=== PATIENT | male | born 1955 | race Caucasian/White ===

== ENCOUNTER 2019-01-20 14:09 | Observation (INO) | payer MEDICARE ==
[2019-01-20 17:03] VITALS: BMI 36.4
[2019-01-20] MEDS ORDERED: Acetaminophen 325 MG TAB PO PRN (17:30)
[2019-01-20] MEDS ORDERED: Senokot S 8.6-50 MG TAB PO PRN (20:25)
[2019-01-20] MEDS ORDERED: Dextrose 50% Abboject 50 ML SYRINGE SLOW IVP PRN (20:31)
[2019-01-20] MEDS ORDERED: Dextrose 5% in Water 1,000 ML IV PRN (20:31)
[2019-01-20] MEDS ORDERED: Atorvastatin Calcium 40 MG TAB PO SCH (21:00)
[2019-01-20] MEDS: Famotidine 20 MG TAB PO SCH (21:00)
[2019-01-20] MEDS: HumaLOG 300 UNITS/3 ML VIAL SC PRN (22:11)
[2019-01-20 23:54] LABS: Troponin I 0.017 ng/mL (< 0.028)
[2019-01-21] MEDS: HumaLOG 300 UNITS/3 ML VIAL SC PRN ×4 (06:45→21:11)
[2019-01-21 06:56] LABS: #Basophils 0.1 thou/uL (0.0-0.2); #Eosinphils 0.4 thou/uL (0.0-0.7); #Lymphocytes 2.2 thou/uL (1.20-3.40); #Monocytes 0.6 thou/uL (0.11-0.59); #Neutrophils 3.7 thou/uL (1.40-6.50); %Basophils 1.8 % (0.0-1.0); %Eosinophils 6.3 % (0.0-10.0); %Lymphocytes 31.1 % (21.0-51.0); %Monocytes 8.6 % (0.0-10.0); %Neutrophils 52.3 % (42.0-75.0); Hemoglobin 16.6 g/dL (14.0-18.0); Mean Corpuscular HGB CONC 32.7 g/dL (32.0-36.0); Mean Corpuscular Hemoglobin 29.8 pg (27.0-31.0); Mean Corpuscular Volume 91.1 fL (78.0-98.0); Mean Platelet Volume 11.7 fL (7.4-10.4); Platelet Count 125 thou/uL (130-400); RBC Distribution Width 12.5 % (11.5-14.5); Red Blood Cell (RBC) Count 5.57 mill/uL (4.70-6.10); White Blood Cell (WBC) Count 7.1 thou/uL (4.8-10.8)
[2019-01-21 07:05] LABS: Hemoglobin A1c 14.8 % (4.0-6.0)
[2019-01-21 07:22] LABS: ALT (SGPT) 39 U/L (8-55); AST (SGOT) 33 U/L (5-34); Albumin 3.4 g/dL (3.4-4.8); Alkaline Phosphatase 94 U/L (40-150); Anion Gap 14 mmol/L (10-20); BUN (Urea Nitrogen) 13 mg/dL (8.4-25.7); Bilirubin, Total 0.4 mg/dL (0.2-1.2); Calc. Creatinine Clearance 165 mL/min (70-130); Calcium 9.2 mg/dL (7.8-10.44); Carbon Dioxide 21 mmol/L (23-31); Cardiac Risk 3.8 (Less than 4.5); Chloride 102 mmol/L (98-107); Cholesterol 192 mg/dl (< 200 Desired); Estimated GFR-MDRD Greater than 90; Globulin 3.2 g/dL (2.4-3.5); Glucose 283 mg/dL (80-115); HDL Cholesterol 50 mg/dL (>60 Neg Risk); LDL Cholesterol, Calculated 121 mg/dL; Potassium 4.1 mmol/L (3.5-5.1); Protein, Total 6.6 g/dL (5.8-8.1); Sodium 133 mmol/L (136-145); Triglycerides 104 mg/dL (Less than 150)
[2019-01-21] MEDS ORDERED: ISOVUE-370 76%-LOCM 1 ML ONE (08:55)
[2019-01-21] MEDS ORDERED: Enoxaparin Sodium 40 MG/0.4 ML SYRINGE SC SCH (09:00)
[2019-01-21] MEDS ORDERED: Non-Formulary Item 1 EACH (Insulin Detemir [Levemir] 25 UNIT) SQ SCH (09:00)
[2019-01-21] MEDS: Aspirin 325 mg Enteric Coated Tablet PO SCH (09:15)
[2019-01-21] MEDS: Famotidine 20 MG TAB PO SCH ×2 (09:15→20:10)
[2019-01-21] MEDS: Lisinopril 2.5 MG TAB PO SCH (09:15)
[2019-01-21] MEDS: Insulin Glargine 25 UNITS in Pre-Filled Syringe 1 EACH SC SCH (09:16)
--- NOTE | 2019-01-21 10:48 | MRI ---
MRI BRAIN NONCONTRAST: DATE: 01/21/19 HISTORY: 63-year-old male with right upper extremity weakness. Abnormality on brain CT. COMPARISON: CT of 01/20/19 at 1211 hours and MRI of 12/25/13. FINDINGS: Unfortunately, all of the images (except for the T1-weighted sagittal sequence), are severely degrade d by severe patient motion. There is a patchy region of T2-hyperintense signal at the lateral aspect of the left temporal lobe, corresponding to the region of low attenuation on the CT. On the CT, this measures approximately 2 x 1.5 cm. There does appear to be restricted diffusion in this location (alt michael it is difficult to be absolutely sure because of the severe motion artifact), suggesting that t his may be a subacute or acute infarction in the left MCA territory. The previous MRI of 2013 showed numerous scattered tiny foci of restricted diffusion in the left cere bral hemisphere consistent with watershed distribution multiple tiny infarctions, or showering of emb elvin. Those lesions are too small to analyze on the current MRI because of the severe degradation of t he current images. There is mild ventriculomegaly, probably on the basis of central parenchymal atrop hy. No mass effect or midline shift. No obvious large intra-axial acute hemorrhage. IMPRESSION: 1. Severe degradation of images by severe motion artifact. Very limited study. 2. Lesion at lateral aspect of left temporal lobe is favored to be a subacute or acute infarction. H owever, recommend follow-up MRI of the brain with and without contrast in 1-3 months to exclude other etiologies. SONJA Patel POS: CET
--- NOTE | 2019-01-21 10:57 | ULT ---
BILATERAL CAROTID DUPLEX ULTRASOUND: HISTORY: Stroke, TIA TECHNIQUE: Grayscale, color-flow and spectral Doppler ultrasound imaging of the extracranial carotid artery syst ems was performed bilaterally. COMPARISON: 12/25/2013 Carotid Ultrasound FINDINGS: Mild plaque formation. The peak systolic velocity in the right ICA measures 119 cm/s. The peak systolic velocity in the left ICA measures 77 cm/s. Vertebral flow: Retrograde flow of left vertebral artery is present. There is antegrade right verteb ral flow. IMPRESSION: No hemodynamically significant stenosis of Both ICAs. Retrograde left vertebral flow. Correlate clinically to exclude evidence of vertebral basilar insuffi ciency.
--- NOTE | 2019-01-21 11:34 | HP ---
PRIMARY CARE PHYSICIAN: Dr. Perez. CHIEF COMPLAINT: Right arm weakness. HISTORY OF PRESENT ILLNESS: Mr. Calderon is a 63-year-old male, who went to the emergency room in [place] today after he reports severe weakness in his right arm. He reports that lasted 15 minutes, was numb, resolved prior to showing up to the emergency room. Reports that he has had a prior CVA that affected the same side that he reports weakness and numbness to for about 15 minutes today. The patient also reports that he has been having chest pain on and off since his stent placement in 2016, but reports that it has been worse in the last week. While in [place], the patient had a brain CT, which showed no acute findings. Evidence of prior tiny lacunar infarcts, mainly on the left side and there is a small focal low-density area in the peripheral left temporal lobe which was not present on the prior CT scan. Depending on his neurological presentation, an MRI should be considered. The patient also had a CT dissection protocol while in the emergency room in [place]. Impression; no evidence of aortic aneurysm or dissection. Prominent coronary arteriosclerosis. Poor filling of the right coronary artery with contrast. Radiologist could not rule out a blockage. The patient had a stent placed in the right coronary artery in 2016, small hiatal hernia, and also has some severe arthrosclerotic change of the lower aorta with possibly some right renal artery stenosis, substantial plaque at the origin of the celiac and SMA and lastly, some severe spinal stenosis of the lumbosacral region. The patient was transported to [facility] for admission for a TIA-CVA rule out. The patient was subsequently admitted to the stroke unit for further management. PAST MEDICAL HISTORY: Diabetes type 2, hypertension, and dyslipidemia. The patient does report having a CVA in the past with some residual right-sided deficits. Does have a history of coronary artery disease, treated with a stent. PAST SURGICAL HISTORY: Stent placement x1. PSYCHIATRIC HISTORY: None. SOCIAL HISTORY: Denies any alcohol or drug use. Does smoke cigarettes, smoked 2 packs per day for the last 30 years. FAMILY HISTORY: No known family history. ALLERGIES: NONE. HOME MEDICATIONS: 1. Levemir 25 units subcu daily. 2. Aspirin 81 mg p.o. daily. 3. Lipitor 40 mg p.o. at bedtime. 4. Lisinopril 2.5 mg p.o. daily. PERTINENT LABORATORY DATA: White blood cell count 7.6, hemoglobin 17, hematocrit 55.6, and platelet count is 159. Sodium 135, potassium 4.2, chloride 101, carbon dioxide 23, gap is 15, BUN is 17, creatinine is 0.86, estimated GFR is 90, glucose 407. Liver enzymes are unremarkable. Troponin x3 undetectable. ASSESSMENT AND PLAN: 1. Chest pain with a history of coronary artery disease, stent placement in the right coronary artery with abnormal CT dissection protocol in the same location. We will ask Dr. Zuñiga who did the stent placement in 2015 to consult. 2. Right arm weakness, greatly improved. History of lacunar infarcts which displayed on the CT scan. We will order an MRI without contrast, carotid Dopplers, and an echocardiogram. We will ask the Stroke Team for evaluation. 3. Diabetes, insulin-dependent. We will restart home medication. We will check Accu-Cheks a.c. and at bedtime. Add a sliding scale for coverage. 4. Hypertension. We will restart home medications. We will trend. 5. Hyperlipidemia. We will check lipids in the morning. Restart home medication. 6. Deep venous thrombosis and gastrointestinal prophylaxis will be started. The patient is on for stroke, CVA, TIA, aspirin 325 mg p.o. daily. Hospital course will depend on clinical findings. Job ID: [id number]
--- NOTE | 2019-01-21 15:37 | CT ---
Carotid CTA. HISTORY: Lost use of right arm yesterday evaluate for vascular abnormalities. Contrast enhanced CTA performed with 2-D and 3-D reconstructions. The aortic arch is unremarkable. Atherosclerotic calcifications seen in the proximal right and left internal carotid arteries. There i s a moderate proximal right and left ICA stenosis approximately 40% on the right and 30% on the left. The cervical right and left internal carotid arteries are patent. The right and left vertebral arteries are patent. IMPRESSION: Approximately 40% right ICA and 30% left ICA stenosis.
--- NOTE | 2019-01-21 16:05 | CT ---
INTRACRANIAL CTA: HISTORY: Loss of use of right arm yesterday. Contrast-enhanced intracranial CTA performed. 2-D and 3-D reconstruction images performed. FINDINGS: Images demonstrate area of hypodensity in the posterolateral aspect of the left temporal lobe. This a radhika demonstrates decreased blood flow seen on the distal MCA and posterior cerebral arteries. Findings compatible with posterolateral left temporal lobe infarction. Proximally, the MCA and CIVIL RIGHTS ATTORNEY vessels are patent. The petrous and cavernous and supraclinoid ICAs are p atent. ASHLYN, MCA, and CIVIL RIGHTS ATTORNEY vessels, as well as the vertebral arteries and basilar artery are also patent. IMPRESSION: Left posterolateral temporal lobe infarction without definite evidence of obvious more proximal vascu lar lesions. Transcribed Date/Time: 01/21/2019 4:27 PM
--- NOTE | 2019-01-21 16:45 | PRG ---
DATE OF SERVICE: 01/21/2019 SUBJECTIVE: Mr. Calderon is a 63-year-old gentleman with past medical history significant for uncontrolled diabetes mellitus, previous ME and stenting of his RCA, 2 pack per day current smoking habit, who presented to the hospital with complaints of a 1-week history of intermittent right upper extremity paresthesia, and weakness. The patient has been admitted for CVA rule out. MRI this morning was positive for a subacute or acute CVA of the lateral temporal lobe. Currently, Mr. Calderon is doing well. He has had no further symptoms since his hospitalization. He denies any chest pain or shortness of breath at this time, although has complained of some sharp intermittent chest pain over the past week without any associated symptoms. He has no nausea or vomiting. No abdominal pain. OBJECTIVE: VITAL SIGNS: Blood pressure 126/66, pulse is 84, respirations are 16, O2 saturation is 96% on room air, the patient is afebrile. GENERAL: This is a moderately obese, middle-aged male, in no acute distress. HEENT: Head is atraumatic and normocephalic. Mucous membranes are moist. Extraocular movements intact. NECK: Supple. No lymphadenopathy. No obvious JVD. No carotid bruits. CV: S1 and S2. Regular rate and rhythm. No appreciable murmurs, rubs, or gallops. LUNGS: Regular respiratory rate and pattern. No wheezing, rhonchi, or crackles. ABDOMEN: Obese. Positive bowel sounds. Soft, nontender. EXTREMITIES: No edema. +2 DP pulses bilaterally. Extremities are warm and well perfused. NEUROLOGIC: Cranial nerves 2 through 12 are grossly intact. I can appreciate no focal deficits at this time. LABORATORY DATA: Hemoglobin 16.6, hematocrit 50.7, white blood cell count 7.1. Sodium 133, potassium 4.1, creatinine 0.76. Hemoglobin A1c 14.8. Triglycerides 104, cholesterol 194, LDL 121, HDL is 50. TSH is 1.4255. ASSESSMENT: 1. Subacute or acute cerebrovascular accident in the lateral temporal lobe per MRI today. 2. Intermittent right upper extremity paresthesia and weakness, unclear if related to above. 3. Uncontrolled type 2 diabetes mellitus, hemoglobin A1c 14.8%. 4. History of coronary artery disease and acute inferior wall myocardial infarction in 2016, status post percutaneous transluminal coronary angioplasty and stent with right coronary artery. 5. Hypertension. 6. Hyperlipidemia. 7. Tobacco abuse with a current 2-pack per day habit. 8. Vertebrobasilar insufficiency per carotid ultrasound. PLAN: We will consult Neurology regarding further recommendations. The patient has been compliant with aspirin and statin therapy thus far. We will obtain CTA of the head and neck. Echo is pending. Further recommendations based on hospital course. The care of this patient has been discussed with Dr. Worley, who agrees with the above. Job ID: [id number]
[2019-01-21] MEDS ORDERED: Atorvastatin Calcium 40 MG TAB PO SCH (21:00)
--- NOTE | 2019-01-22 00:29 | CON ---
DATE OF CONSULTATION: 01/21/2019 CONSULTING PHYSICIAN: Hospitalist Services. IMPRESSION: 1. Transient ischemic attack with transient right arm weakness. 2. Past history of stroke. 3. Diabetes. 4. Hypertension. 5. Hyperlipidemia. 6. Tobacco abuse. PLAN: 1. Add Plavix 75 mg per day. 2. Continue aspirin and Lipitor. 3. Discontinue smoking. 4. Review echocardiogram. HISTORY OF PRESENT ILLNESS: Mr. Calderon is a 63-year-old gentleman who reports that he was sitting at home when he suddenly lost the use of his right arm. It lasted about 10 minutes. It was not associated with any change in speech or weakness in the leg. Symptoms resolved completely. A week prior to this, he reports a very strange episode where he fell onto his couch and was unable to move any of his extremities for around 10 minutes. He reportedly remained awake throughout the entire event. He did not seek any medical attention for this. Since admission, he had an MRI of his brain, which showed a questionable subacute stroke in the left temporal lobe. His carotid ultrasound did not show any stenosis. There was some antegrade flow in the vertebral arteries. His lab work was unremarkable with a cholesterol ratio of 3.8. He denies any cardiac history. His EKG showed a normal sinus rhythm. PAST MEDICAL HISTORY: As listed above. ALLERGIES: NONE REPORTED. SOCIAL HISTORY: Positive tobacco. FAMILY HISTORY: Noncontributory. REVIEW OF SYSTEMS: 10 system review of systems were reviewed. MEDICATIONS: List was reviewed. PHYSICAL EXAMINATION: GENERAL: He is an overweight middle-aged man, sitting at the bedside, in no distress. VITAL SIGNS: Pulse 80, respirations 20. He is afebrile. HEENT: Pupils equal and reactive. Conjunctivae clear. Oropharynx clear. NECK: Supple. No lymphadenopathy. EXTREMITIES: No cyanosis. NEUROLOGIC: He is alert and cooperative. His speech is fluent and clear. Cranial nerves were intact. Motor exam showed good strength bilaterally. Sensation was intact to touch. No abnormal movements were seen. He can walk independently. SUMMARY: His symptoms are consistent with a TIA. I would advance his therapy since he failed aspirin alone. He will stay on the Plavix for the next 6 months. I would be happy to follow up with him as an outpatient. Job ID: [id number]
--- NOTE | 2019-01-22 00:55 | CON ---
DATE OF CONSULTATION: HISTORY OF PRESENT ILLNESS: Mr. Renny Calderon is a 63-year-old white male. He has seen Dr. Zuñiga before in August 2015. At that time, presented to the [facility] complaining of chest discomfort and had [address]-segment elevation in the inferior leads. He underwent cardiac catheterization emergently, which revealed a 40% to 50% proximal LAD, 30% to 40% percent plaquing in the circumflex and a 99% lesion in the mid right coronary artery. He underwent placement of Promus drug-eluting stent 3.0 x 24 mm and was post dilated with a 3.5 mm balloon proximally. He was discharged on aspirin, Brilinta, lisinopril, atorvastatin, and metformin. Blood pressure was low and he was not started on beta judie. He returned once to the office for followup in November 2015. This was 3 months after the stent was placed and he had stopped taking Brilinta 1 week prior to that and was uncertain, if he was taking aspirin. He was started on Plavix. He has not returned for followup. He now is admitted with an episode of right arm weakness and paresthesias, as well as some headaches. He also states that over the last 2 weeks, he has had increased chest discomfort. He is somewhat of a vague historian, but it appears that this discomfort occurs at rest and he describes it as a tightness in his chest. At times, he states that he feels palpitations when he is having this, but later when again asked about this, he stated he did not have palpitations. The episodes as stated, occur at rest and only lasts for a few seconds. He denies any exertional chest discomfort. PAST MEDICAL HISTORY: Diabetes, hypertension, hyperlipidemia. History of CVA in the past, coronary artery disease. OPERATIONS: Only placement of the right coronary artery stent. SOCIAL HISTORY: Smokes 1-1/2 to 2 packs per day. He does not drink any alcohol. FAMILY HISTORY: Negative for coronary artery disease. MEDICATIONS: 1. Aspirin 81 daily. 2. Atorvastatin 40 at bedtime. 3. Insulin 25 units daily. 4. Lisinopril 2.5 daily. ALLERGIES: NONE. REVIEW OF SYSTEMS: A 10-point review of systems is otherwise unremarkable. PHYSICAL EXAMINATION: VITAL SIGNS: Blood pressure 103/71, pulse of 90. HEENT: PERRL. NECK: Supple. CHEST: Clear. CARDIAC: S1 and S2 normal without any S3, S4, or murmurs. ABDOMEN: Normal bowel sounds without tenderness. ABDOMEN: Obese. EXTREMITIES: Revealed no clubbing, cyanosis, or edema. NEUROLOGIC: Grossly intact. SKIN: Warm and dry. LABORATORY DATA: EKG in [place] revealed normal sinus rhythm with evidence for inferior and anterolateral infarction. CBC is unremarkable. TSH 1.4255. Sodium 133, potassium 4.1, chloride 102, carbon dioxide 21, BUN 13, creatinine 0.76. Cholesterol 192, triglycerides 104, HDL 50, LDL 121. Troponin I is negative x3. Carotid Doppler revealed retrograde flow of the left vertebral artery. Otherwise, minimal plaquing. Brain MRI revealed severe motion artifact. There is a lesion in the left temporal lobe, which was felt to be acute or subacute. Intracranial CTA revealed left posterior lateral temporal lobe infarction without definite evidence of more proximal vascular lesions. Carotid CTA revealed 40% right internal carotid artery stenosis and 30% left internal carotid artery stenosis. IMPRESSION: 1. Left posterior lateral temporal lobe infarction. 2. Atypical chest discomfort, only lasting seconds. 3. New finding of old anterolateral infarction on EKG versus his EKGs from 2016. 4. History of inferior ST elevation myocardial infarction in August 2015 with placement of drug-eluting stent in the mid right coronary artery. 5. Noncompliant with dual antiplatelet therapy after stent placement. 6. Smoker. 7. Hypercholesterolemia under poor control. 8. Diabetes. 9. Hypertension. PLAN: Atorvastatin will be increased from 40-80 mg daily and consideration may also need to be given to addition of another agent. Aspirin has been increased from 81 mg daily to 325 daily with his stroke Echocardiogram will be performed. With his acute stroke, we would prefer further cardiac evaluation at another time. Job ID: [id number] [facility]
[2019-01-22 05:34] VITALS: TEMP 97.7
[2019-01-22] MEDS: HumaLOG 300 UNITS/3 ML VIAL SC PRN (06:04)
[2019-01-22] MEDS ORDERED: Clopidogrel Bisulfate 300 MG TAB PO SCH (09:00)
[2019-01-22] MEDS ORDERED: Ezetimibe 10 MG TAB PO SCH (09:00)
[2019-01-22] MEDS: Famotidine 20 MG TAB PO SCH (09:50)
[2019-01-22] MEDS: Aspirin 325 mg Enteric Coated Tablet PO SCH (09:50)
[2019-01-22] MEDS: Lisinopril 2.5 MG TAB PO SCH (09:50)
[2019-01-22] MEDS: Insulin Glargine 25 UNITS in Pre-Filled Syringe 1 EACH SC SCH (09:50)
--- NOTE | 2019-01-22 10:01 | PRG ---
DATE OF SERVICE: 01/22/2019 SUBJECTIVE: Mr. Calderon feels better today. He has regained function in his right arm. He is not having any chest pain. When I discussed the chest pain, he says it is "feel sharp for 1 or 2 seconds at a time." There is no symptom typical of angina. OBJECTIVE: VITAL SIGNS: His blood pressure is variable as high as 148/63, as low as 104/53, pulse 83 and regular. LUNGS: Clear. CARDIAC: Normal S1 and normal S2. ABDOMEN: Obese and nontender. EXTREMITIES: Warm and dry. Reviewing the medications at home. The patient is extremely uncertain of what if any medicines he is taking. He cannot tell me any of the medicines he is taking. The patient has been smoking up to this admission. The patient states he did have an episode when he stood up quickly and felt lightheaded even fell to the ground, felt like an episode of orthostatic hypotension. DIAGNOSTIC DATA: Echocardiogram showed normal left ventricular function with normal wall motion, some degree of left ventricular hypertrophy. ASSESSMENT: 1. Recent transient ischemic attack versus small stroke. The MRI suggests a stroke, although the quality of the images were suboptimal. 2. Diabetes. 3. Continued smoking. 4. Noncompliance with medication. 5. Probably orthostatic hypotension. 6. Previous stent implantation. 7. Atypical chest pain. PLAN: 1. Discussed staying here for stress testing. He declines that. 2. Stressed the importance of not smoking. 3. Dr. Sherman recommended adding another anti-platelet drugs. Therefore, we will treat with dual anti-platelet drugs. 4. Dr. Mijares increased the atorvastatin, although it is really not certain he has been actually taking this medicine. 5. We will add Zetia. 6. Continue aspirin. 7. The patient will be asked to come see us in the office in a few weeks. The patient has been very noncompliant with followups. This patient has been asked to sit down or lay down quickly if he feels lightheaded. 8. The patient has been told that he needs to carry listed of medicines with him and he needs to know what medicines he takes. It is very unclear whether he is taking, which medicines and if so, how often and what they are, he does not know. Job ID: [id number]
[2019-01-22 10:20] VITALS: BP 119/87
--- NOTE | 2019-01-23 04:52 | DIS ---
DATE OF ADMISSION: 01/20/2019 DATE OF DISCHARGE: 01/22/2019 CHIEF COMPLAINT ON ADMISSION: Intermittent right upper extremity paresthesia and weakness. DISCHARGE DIAGNOSES: 1. Subacute or acute cerebrovascular accident in the lateral temporal lobe per MRI. 2. Intermittent right upper extremity paresthesia and weakness, likely transient ischemic attacks, symptomatically resolved. 3. Uncontrolled type 2 diabetes mellitus, hemoglobin A1c 14.8%. 4. History of coronary artery disease and acute inferior wall myocardial infarction in 2016, status post percutaneous transluminal coronary angioplasty and stent of the right coronary. 5. Hypertension. 6. Hyperlipidemia. 7. Atypical chest pain, acute coronary syndrome ruled out. 8. Tobacco abuse, current 2-pack per day history. 9. Orthostatic hypotension. HOSPITAL COURSE: The patient is a 63-year-old gentleman with past medical history significant for uncontrolled diabetes mellitus, previous HI, 2-pack per day current tobacco habit, who presented to the hospital with complaints of intermittent right arm weakness and tingling over the past week. The patient's symptoms were waxing and waning. He does report some sharp intermittent chest pain. He was admitted for CVA rule out. He underwent extensive workup which included an MRI which showed lesion of the lateral aspect of left temporal lobe favored to be a subacute or acute infarction. Neurology was consulted and recommended addition of dual anti- platelet therapy to the patient's regimen. He had previously only been on aspirin. The patient was loaded with 300 mg of Plavix and was continued on 75 mg of Plavix daily. He remained asymptomatic throughout his stay. Dr. Zuñiga of Cardiology was also consulted, and offered the patient an in-house nuclear stress test, which the patient did decline. He underwent a transthoracic echocardiogram which showed normal left ventricular systolic function estimated at 55% to 60% and moderate concentric left ventricular hypertrophy. The patient's statin was also increased to 80 mg at bedtime while he was here. On the day of my interview, the patient feels well. He has no dizziness. He has no complaints of chest pain, shortness of breath, or any paresthesias or weakness. CONSULTATIONS: 1. Dr. Sherman of Neurology. 2. Dr. Zuñiga of Cardiology. CONDITION AT DISCHARGE: Stable. DISCHARGE DISPOSITION: Home. DISCHARGE INSTRUCTIONS AND FOLLOWUP: The patient has been counseled extensively on tobacco cessation. He will follow up with his primary care physician, Dr. Perez, regarding further management of his diabetes. He will also follow up with Dr. Zuñiga as an outpatient for possible outpatient stress test as the patient has had no extensive cardiology workup. MEDICATIONS: New medications for the patient will include Plavix 75 mg daily. He will continue aspirin 81 mg daily along with Lipitor 80 mg p.o. at bedtime. He will continue with lisinopril 2.5 mg daily as well as his insulin. The patient will be discharged home in good condition today. Job ID: [id number] [facility]
[2019-01-23] MEDS ORDERED: Clopidogrel Bisulfate 75 MG TAB PO SCH (09:00)
== END 2019-01-22 10:40 | disposition home or self-care (01) ==
LOC: ERS 14:09 → 2SE 14:30
PROVIDERS: ADMIT Internal Medicine; ATTEND Internal Medicine
DX: I63.9 Cerebral infarction, unspecified (principal); G83.21 Monoplegia of upper limb affecting right dominant side; R20.2 Paresthesia of skin; R07.89 Other chest pain; E11.9 Type 2 diabetes mellitus without complications; I10 Essential (primary) hypertension; E78.5 Hyperlipidemia, unspecified; I25.10 Atherosclerotic heart disease of native coronary artery without angina pectoris; F17.210 Nicotine dependence, cigarettes, uncomplicated; I65.23 Occlusion and stenosis of bilateral carotid arteries; I25.2 Old myocardial infarction; Z86.73 Personal history of transient ischemic attack (TIA), and cerebral infarction without residual deficits; Z79.4 Long term (current) use of insulin; Z79.82 Long term (current) use of aspirin; Z79.899 Other long term (current) drug therapy; Z91.14 Patient's other noncompliance with medication regimen; Z95.5 Presence of coronary angioplasty implant and graft
CPT/HCPCS: 70496; 70498; 70551; 80061; 82962 ×3; 83036; 84484; 93306; 93880; 94760; 96372; 97139 ×3; 99285; G0378 ×2; 36415; 36416; 80053; 84443; 85025; J1650; J1825; Q9966

== ENCOUNTER 2019-05-18 23:42 | Observation (INO) | payer MEDICARE ==
[2019-05-19 00:19] LABS: #Basophils 0.1 thou/uL (0.0-0.2); #Eosinphils 0.2 thou/uL (0.0-0.7); #Lymphocytes 1.9 thou/uL (1.20-3.40); #Monocytes 0.7 thou/uL (0.11-0.59); #Neutrophils 5.3 thou/uL (1.40-6.50); %Basophils 1.1 % (0.0-1.0); %Eosinophils 2.3 % (0.0-10.0); %Lymphocytes 23.3 % (21.0-51.0); %Monocytes 8.2 % (0.0-10.0); %Neutrophils 65.1 % (42.0-75.0); Hemoglobin 17.6 g/dL (14.0-18.0); Mean Corpuscular HGB CONC 32.8 g/dL (32.0-36.0); Mean Corpuscular Hemoglobin 29.8 pg (27.0-31.0); Mean Corpuscular Volume 90.7 fL (78.0-98.0); Mean Platelet Volume 11.6 fL (7.4-10.4); Platelet Count 165 thou/uL (130-400); RBC Distribution Width 12.9 % (11.5-14.5); White Blood Cell (WBC) Count 8.1 thou/uL (4.8-10.8)
--- NOTE | 2019-05-19 00:20 | RAD ---
RADIOGRAPH CHEST 1 VIEW: HISTORY: 63-year-old male with cough FINDINGS: There are no airspace densities, pulmonary edema, pneumothorax, or cardiomegaly. The lateral costophr enic angles are sharp. IMPRESSION: No acute cardiopulmonary findings.
[2019-05-19 00:42] LABS: ALT (SGPT) 17 U/L (8-55); AST (SGOT) 16 U/L (5-34); Albumin 3.7 g/dL (3.4-4.8); Alkaline Phosphatase 92 U/L (40-110); Anion Gap 18 mmol/L (10-20); BUN (Urea Nitrogen) 14 mg/dL (8.4-25.7); Bilirubin, Total 0.4 mg/dL (0.2-1.2); Calc. Creatinine Clearance 0 mL/min (70-130); Calcium 9.7 mg/dL (7.8-10.44); Carbon Dioxide 19 mmol/L (23-31); Chloride 96 mmol/L (98-107); Estimated GFR-MDRD 61; Globulin 3.5 g/dL (2.4-3.5); Glucose 396 mg/dL (80-115); Lipase 6 U/L (8-78); Potassium 3.8 mmol/L (3.5-5.1); Protein, Total 7.2 g/dL (5.8-8.1); Sodium 129 mmol/L (136-145)
[2019-05-19] MEDS ORDERED: Ondansetron PF 4 MG/2 ML Vial ONE (00:48)
[2019-05-19] MEDS ORDERED: Meclizine HCl 25 MG TAB ONE (01:04)
--- NOTE | 2019-05-19 07:53 | CT ---
PRELIMINARY REPORT/[facility]/EMERGENCY AFTER HOURS PROCEDURE: PROCEDURE INFORMATION: Exam: CT Head without contrast Exam date and time: 05/19/2019 1:06 AM Clinical history: 63 years old, male; Patient HX: 63 y/o m presents to ED via EMS transport C/O gener alized weakness that began yesterday morning and worsened throughout the day; N/v, dizziness with laura lity of spinning sensation, blurry vision that began prior to pt's arrival to ED. PT called his brother after a fall during which PT was unable to get off of the floor; His brother then called 911. PT was last able to ambulate at 2100 last night. He denies fever, chills, abd pain. PT, w ith h/o HTN, cad, mi, CVA, dmii, is not compliant with his HTN medications. TECHNIQUE: Imaging protocol: Computed tomography of the head without contrast. COMPARISON: No relevant prior studies available. FINDINGS: Brain: No acute intracranial hemorrhage or mass effect. There is decreased attenuation in the periventricular white matter, likely from microvascular disease . There are multiple old lacunar infarcts in the basal ganglia/internal capsule regions bilaterally. No definite acute infarct by CT. MRI could be more sensitive/specific for detection, and also for dis tinguishing between old and subacute infarcts, as clinically directed. Ventricles: Ventricle size is normal for age. Bones/joints: No definite acute skull fracture. Sinuses: Included paranasal sinuses are essentially clear. Mastoid air cells: No significant acute finding. IMPRESSION: 1. No acute intracranial hemorrhage or mass effect. 2. Changes of microvascular disease, and old lacunar infarcts. 3. No definite acute infarct by CT, see above. 4. Other findings discussed above. Thank you for allowing us to participate in the care of your patient. Dictated and Authenticated by: John Garcia MD 05/19/2019 1:39 AM Central Time ([place] & [place]) FINAL REPORT EMERGENCY AFTER HOURS BRAIN CT WITHOUT IV CONTRAST: Date: 05/19/19 Time: 0106 hours IMPRESSION: Mild chronic white matter ischemic changes. No mass or bleed, or other acute process. Stable from letha or study. Report in agreement with preliminary report given on-call by [facility]. POS: [facility]
[2019-05-19 09:44] LABS: Bilirubin Negative (Negative); Blood, Urine Negative (Negative); Clarity Clear (Clear); Glucose, Urine (Dipstick) Greater than 1000 mg/dL (Negative); Leukocyte Negative Leu/uL (Negative); Nitrite Negative (Negative); Protein, Urine (Dipstick) 20 mg/dL (Neg-Trace); Urobilinogen Normal mg/dL (Less than 2)
[2019-05-19 12:08] VITALS: BMI 32.5
[2019-05-19] MEDS ORDERED: Senokot S 8.6-50 MG TAB PO PRN (12:20)
[2019-05-19] MEDS ORDERED: Ondansetron PF 4 MG/2 ML Vial IVP PRN (12:20)
[2019-05-19] MEDS ORDERED: Guaifenesin DM 100-10/5 ML UDCUP PO PRN (12:20)
[2019-05-19] MEDS ORDERED: Bisacodyl 10 MG SUPP PR PRN (12:20)
[2019-05-19] MEDS ORDERED: Dextrose 50% Abboject 50 ML SYRINGE SLOW IVP PRN (12:20)
[2019-05-19] MEDS ORDERED: Acetaminophen 325 MG TAB PO PRN (12:20)
[2019-05-19] MEDS ORDERED: Dextrose 5% in Water 1,000 ML IV PRN (12:20)
[2019-05-19] MEDS ORDERED: Calcium Carbonate 500 MG ChewTAB PO PRN (12:20)
[2019-05-19] MEDS ORDERED: HumaLOG 300 UNITS/3 ML VIAL SC PRN (12:20)
[2019-05-19] MEDS: Sodium Chloride 0.9% 1,000 ML IV SCH ×2 (12:51→22:40)
[2019-05-19] MEDS: HumaLOG 300 UNITS/3 ML VIAL SC PRN ×2 (12:55→17:28)
--- NOTE | 2019-05-19 17:57 | HP ---
REASON FOR ADMISSION: Severe dehydration, diabetes mellitus type 2, uncontrolled. HISTORY OF THE PRESENTING ILLNESS: The patient gives history of feeling weak yesterday evening while he was watching TV. He started feeling nauseous, then vomited nearly 10 times. He could not really get up. He started having dizziness. The patient called 911 and EMS brought him here and apparently had 4 more episodes of retching and vomiting here on arrival. He got fluid resuscitated in the ER and is feeling better now. No complaints of cough or expectoration. No diarrhea. No complaints of fever, urinary frequency, or urgency. No burning sensation while passing urine. The patient mentions that his primary care physician, Dr. Perez increased his Levemir to 30 units twice daily, which he filled, this was prescribed a week back. The patient filled this prescription yesterday. He has still not taken it twice a day, but instead has been taking 25 units at bedtime as previously. No complaints. PAST MEDICAL AND SURGICAL HISTORY: Diabetes mellitus type 2, history of CVA with no residual weakness, history of coronary artery disease with prior stent, dyslipidemia, and hypertension. CURRENT MEDICATIONS: The patient takes aspirin 81 mg p.o. daily, Levemir 25 units subcu daily. He is supposed to take 30 units twice daily, lisinopril 10 mg daily. ALLERGIES: NO KNOWN DRUG ALLERGIES. PERSONAL HISTORY: He smokes 2 packs a day. Does not abuse alcohol or drugs. He has been smoking for last 40 years. He lives alone. His brother lives next door. He ambulates by himself. FAMILY HISTORY: Both parents are . Mother at the age of 84 years from natural causes. Father at the age of 85 years. He had history of throat cancer. CODE STATUS: His power of erisa attorney is his brother Mr. Gabriel Calderon. REVIEW OF SYSTEMS: CONSTITUTIONAL: Negative for weight loss or gain, ability to conduct usual activities. SKIN: Negative for rash, itching. EYES: Negative for double vision, pain. ENT/MOUTH: Negative for nose bleeding, neck stiffness, pain, tenderness. CARDIOVASCULAR: Negative for palpitations, dyspnea on exertion, orthopnea. RESPIRATORY: Negative for shortness of breath, wheezing, cough, hemoptysis, fever or night sweats. GASTROINTESTINAL: Negative for poor appetite, abdominal pain, heartburn, nausea , vomiting, constipation, or diarrhea. GENITOURINARY: Negative for urgency, frequency, dysuria, nocturia. MUSCULOSKELETAL: Negative for pain, swelling. NEUROLOGIC/PSYCHIATRIC: Negative for anxiety, depression. ALLERGY/IMMUNOLOGIC: Negative for skin rash, bleeding tendency. PHYSICAL EXAMINATION: GENERAL: The patient is a 63-year-old male, who is currently not in any acute distress. VITAL SIGNS: Blood pressure 128/76, pulse 80 per minute, respiratory rate 18 per minute, saturating 99% on room air, temperature is 97.6 degrees Fahrenheit. NECK: Supple. No elevated JVD. HEENT: Eyes; extraocular muscles intact. Pupils reacting to light. Oral cavity, mucous membranes are dry. No exudates or congestion. CARDIOVASCULAR: S1, S2 heard. Regular rhythm. RESPIRATORY: Air entry 1+ bilateral. No rales or rhonchi. ABDOMEN: Soft, bowel sounds heard. No tenderness, rigidity, or guarding. EXTREMITIES: No peripheral edema or calf tenderness. VASCULAR: Peripheral pulses 1+ bilateral. No ischemic ulcerations or gangrene. CENTRAL NERVOUS SYSTEM: No gross focal deficits noted. NEUROLOGIC: The patient is alert, awake, oriented well. PSYCHIATRIC: The patient's mood is euthymic. No hallucinations or delusions. LABORATORY AND DIAGNOSTIC DATA: CT of brain without contrast done showed no acute intracranial hemorrhage or mass effect. There is microvascular chronic changes seen, old lacunar infarcts. No acute infarct by CAT scan. Chest x-ray done shows no acute cardiopulmonary abnormalities. White count of 8, H and H 17 and 53, platelet count 165, MCV is 90 with 65% neutrophils. Sodium 129, serum glucose 396, corrected sodium is around 134, serum bicarb 19, BUN 14, creatinine 1.2. UA shows greater than 1000 mg/dL of glucose. CLINICAL IMPRESSION AND PLAN: The patient will be under observation on medical floor for diabetes mellitus type 2, uncontrolled with moderate to severe dehydration. He will be gently hydrated with normal saline. We will place him on Lantus 30 units subcu twice daily. We will also continue him on aspirin, high- dose Lipitor in view of prior history of coronary artery disease with stent. We will also place him on lisinopril at 2.5 mg daily, which will be escalated to desired level. The plan is to bring his fingerstick glucose to around 200 and hydrate him prior to discharge in the morning. We will continue to closely monitor him on medical floor. Job ID: [id number] [facility]
[2019-05-19] MEDS ORDERED: Atorvastatin Calcium 40 MG TAB PO SCH (21:00)
[2019-05-19] MEDS: Famotidine 20 MG TAB PO SCH (21:50)
[2019-05-19] MEDS: Insulin Glargine 30 UNITS in Pre-Filled Syringe 1 EACH SC SCH (21:50)
[2019-05-20] MEDS: HumaLOG 300 UNITS/3 ML VIAL SC PRN ×2 (06:29→12:56)
[2019-05-20 06:56] LABS: #Basophils 0.1 thou/uL (0.0-0.2); #Eosinphils 0.3 thou/uL (0.0-0.7); #Lymphocytes 2.6 thou/uL (1.20-3.40); #Monocytes 0.5 thou/uL (0.11-0.59); #Neutrophils 2.7 thou/uL (1.40-6.50); %Basophils 1.4 % (0.0-1.0); %Eosinophils 4.6 % (0.0-10.0); %Lymphocytes 41.8 % (21.0-51.0); %Monocytes 8.3 % (0.0-10.0); %Neutrophils 43.9 % (42.0-75.0); Hemoglobin 15.8 g/dL (14.0-18.0); Mean Corpuscular HGB CONC 32.7 g/dL (32.0-36.0); Mean Corpuscular Hemoglobin 29.9 pg (27.0-31.0); Mean Corpuscular Volume 91.3 fL (78.0-98.0); Mean Platelet Volume 11.9 fL (7.4-10.4); Platelet Count 144 thou/uL (130-400); RBC Distribution Width 12.8 % (11.5-14.5); Red Blood Cell (RBC) Count 5.29 mill/uL (4.70-6.10); White Blood Cell (WBC) Count 6.1 thou/uL (4.8-10.8)
[2019-05-20 07:19] LABS: Anion Gap 11 mmol/L (10-20); BUN (Urea Nitrogen) 12 mg/dL (8.4-25.7); Calc. Creatinine Clearance 145 mL/min (70-130); Calcium 8.7 mg/dL (7.8-10.44); Carbon Dioxide 23 mmol/L (23-31); Chloride 104 mmol/L (98-107); Estimated GFR-MDRD Greater than 90; Glucose 233 mg/dL (80-115); Potassium 3.6 mmol/L (3.5-5.1); Sodium 134 mmol/L (136-145)
[2019-05-20] MEDS ORDERED: Aspirin 81 mg Enteric Coated Tablet PO SCH (09:00)
[2019-05-20] MEDS ORDERED: Enoxaparin Sodium 40 MG/0.4 ML SYRINGE SC SCH (09:00)
[2019-05-20] MEDS ORDERED: Lisinopril 2.5 MG TAB PO SCH (09:00)
[2019-05-20] MEDS: Sodium Chloride 0.9% 1,000 ML IV SCH (09:22)
[2019-05-20] MEDS: Famotidine 20 MG TAB PO SCH (09:23)
[2019-05-20] MEDS: Insulin Glargine 30 UNITS in Pre-Filled Syringe 1 EACH SC SCH (09:23)
[2019-05-20 12:00] VITALS: BP 127/60; TEMP 97.4
--- NOTE | 2019-05-20 19:26 | DIS ---
DATE OF ADMISSION: 05/19/2019 DATE OF DISCHARGE: 05/20/2019 DISCHARGE DISPOSITION: Home. PRIMARY DISCHARGE DIAGNOSIS: Uncontrolled diabetes with severe dehydration. SECONDARY DISCHARGE DIAGNOSES: History of CVA with no residual weakness, history of prior coronary artery disease with stent, dyslipidemia, hypertension, tobacco abuse. PROCEDURES DONE DURING HOSPITALIZATION: Chest x-ray done showed no acute cardiopulmonary abnormalities. CT brain without contrast done showed no acute intracranial hemorrhage or mass effect. There are changes of microvascular disease with old lacunar infarcts. No acute infarct was seen on the CAT scan. LABORATORY DATA: Hemoglobin and hematocrit 15 and 48, platelet count is 144, white count of 6.1. His serum glucose was 396 on the day of admission. BUN 12, creatinine 0.7 on the day of discharge. Lipase 6. Bicarb was 19 on the day of admission with discharge numbers of 23. UA showed more than 1000 mg/dL of glucose. DISCHARGE MEDICATIONS: 1. Levemir 30 units subcu twice daily. 2. Aspirin 81 mg p.o. daily. 3. Atorvastatin 80 mg p.o. at bedtime. 4. Lisinopril 2.5 mg p.o. daily. ALLERGIES: NO KNOWN DRUG ALLERGIES. DISCHARGE PLAN: The patient to follow up with Dr. Jose Juan Perez, his primary care physician in 1 week. He is advised to check fingerstick glucose twice daily for a period of 10 days and record to follow up with Dr. Perez for changes in his diabetic medication. BRIEF COURSE DURING HOSPITALIZATION: The patient initially came in with complaints of feeling weak, nauseous, and vomited nearly 10 times prior to arrival here. He had uncontrolled diabetes and was severely dehydrated on arrival. The patient also had not changed his dose of Levemir to 30 units twice daily as advised by his primary care physician, but instead was taking only 25 units at bedtime. He had filled this prescription, which was given a week back and had not started it. In view of this, the patient was gently hydrated during his brief stay here. He was placed on 30 units of Lantus twice daily. The fingerstick glucose is around 200s at the time of discharge. He is tolerating oral solid diet with no further nausea or vomiting. He is advised to check fingerstick glucose twice daily and record for a period of 10 days to follow up with primary care physician for changes in his diabetic medications. He is hemodynamically stable and ambulating. Please note, I have seen and examined the patient on the day of discharge. Job ID: [id number]
== END 2019-05-20 16:55 | disposition home or self-care (01) ==
LOC: ERS 23:42 → ERHOLD 05-19 02:19 → 2SW 05-19 11:50
PROVIDERS: ADMIT Internal Medicine; ATTEND Internal Medicine
DX: E86.0 Dehydration (principal); E11.65 Type 2 diabetes mellitus with hyperglycemia; I10 Essential (primary) hypertension; E78.5 Hyperlipidemia, unspecified; I25.10 Atherosclerotic heart disease of native coronary artery without angina pectoris; F17.210 Nicotine dependence, cigarettes, uncomplicated; E87.1 Hypo-osmolality and hyponatremia; Z86.73 Personal history of transient ischemic attack (TIA), and cerebral infarction without residual deficits; Z79.4 Long term (current) use of insulin; Z79.82 Long term (current) use of aspirin; Z79.899 Other long term (current) drug therapy; Z95.5 Presence of coronary angioplasty implant and graft
CPT/HCPCS: 36415; 36416; 70450; 71045; 80048; 80053; 81003; 83690; 85025; 93005; 96361; 96372; 96374; G0378; J1650; J1815; J2405; J8597

== ENCOUNTER 2021-03-26 21:34 | Inpatient (IN) | payer MEDICARE ==
[2021-03-27 01:14] LABS: SARS-CoV-2 NAA Rapid Test Not Detected (NotDetected)
[2021-03-27 02:37] VITALS: BMI 31.4
[2021-03-27] MEDS ORDERED: Dextrose 50% Abboject 50 ML SYRINGE IVP PRN (05:30)
[2021-03-27] MEDS ORDERED: Dextrose 5% in Water 1,000 ML IV PRN ×2 (05:30→12:00)
[2021-03-27] MEDS: HumaLOG 300 UNITS/3 ML VIAL SC PRN ×3 (06:38→17:06)
[2021-03-27] MEDS ORDERED: Lorazepam 2 MG/ML VIAL SLOW IVP SCH (08:30)
[2021-03-27] MEDS ORDERED: hydrALAZINE 20 MG/ML VIAL SLOW IVP PRN (12:00)
[2021-03-27] MEDS ORDERED: Dextrose 50% Abboject 50 ML SYRINGE SLOW IVP PRN (12:00)
[2021-03-27] MEDS ORDERED: Acetaminophen 500 MG TAB PO PRN (12:00)
[2021-03-27] MEDS ORDERED: Ondansetron ODT 4 MG TAB PO PRN (12:00)
[2021-03-27] MEDS ORDERED: Ondansetron PF 4 MG/2 ML Vial IVP PRN (12:00)
[2021-03-27] MEDS ORDERED: Nicotine 14 MG PATCH TD PRN (18:15)
[2021-03-27] MEDS ORDERED: Atorvastatin Calcium 40 MG TAB PO SCH (21:00)
[2021-03-27] MEDS: Lantus 1000 UNITS/10 ML VIAL SC SCH (21:05)
[2021-03-28 05:30] LABS: #Basophils 0.1 thou/uL (0.0-0.2); #Eosinphils 0.4 thou/uL (0.0-0.7); #Lymphocytes 2.3 thou/uL (1.20-3.40); #Monocytes 0.8 thou/uL (0.11-0.59); #Neutrophils 4.1 thou/uL (1.40-6.50); %Basophils 1.1 % (0.0-1.0); %Eosinophils 5.3 % (0.0-10.0); %Lymphocytes 30.2 % (21.0-51.0); %Monocytes 9.9 % (0.0-10.0); %Neutrophils 53.6 % (42.0-75.0); Hemoglobin 14.5 g/dL (14.0-18.0); Mean Corpuscular HGB CONC 30.5 g/dL (32.0-36.0); Mean Corpuscular Hemoglobin 27.6 pg (27.0-31.0); Mean Corpuscular Volume 90.7 fL (78.0-98.0); Mean Platelet Volume 11.4 fL (7.4-10.4); Platelet Count 175 thou/uL (130-400); RBC Distribution Width 13.3 % (11.5-14.5); Red Blood Cell (RBC) Count 5.26 mill/uL (4.70-6.10); White Blood Cell (WBC) Count 7.6 thou/uL (4.8-10.8)
[2021-03-28 05:35] LABS: Hemoglobin A1c 8.5 % (4.0-6.0)
[2021-03-28 05:50] LABS: ALT (SGPT) 12 U/L (8-55); AST (SGOT) 19 U/L (5-34); Albumin 3.1 g/dL (3.4-4.8); Alkaline Phosphatase 78 U/L (40-110); Anion Gap 11 mmol/L (10-20); BUN (Urea Nitrogen) 11 mg/dL (8.4-25.7); Bilirubin, Total 0.4 mg/dL (0.2-1.2); Calc. Creatinine Clearance 146 mL/min (70-130); Calcium 9.1 mg/dL (7.8-10.44); Carbon Dioxide 24 mmol/L (23-31); Cardiac Risk 4.4 (Less than 4.5); Chloride 102 mmol/L (98-107); Cholesterol 181 mg/dl (< 200 Desired); Globulin 3.8 g/dL (2.4-3.5); Glucose 114 mg/dL (80-115); HDL Cholesterol 41 mg/dL (>60 Neg Risk); LDL Cholesterol, Calculated 127 mg/dL; Potassium 3.8 mmol/L (3.5-5.1); Protein, Total 6.9 g/dL (5.8-8.1); Sodium 133 mmol/L (136-145); Triglycerides 66 mg/dL (Less than 150)
[2021-03-28] MEDS ORDERED: Lisinopril 2.5 MG TAB PO SCH (09:00)
[2021-03-28] MEDS ORDERED: Aspirin 325 mg Enteric Coated Tablet PO SCH ×2 (09:00→15:35)
[2021-03-28] MEDS: Lantus 1000 UNITS/10 ML VIAL SC SCH (09:26)
[2021-03-28] MEDS: HumaLOG 300 UNITS/3 ML VIAL SC PRN (11:12)
[2021-03-28 15:43] VITALS: BP 126/61; TEMP 97.8
[2021-03-29] MEDS ORDERED: Clopidogrel Bisulfate 75 MG TAB PO SCH (09:00)
== END 2021-03-28 18:30 | disposition home health service (06) | DRG 65 ==
LOC: ERS 21:34 → 2SE 03-27 00:03 → OBSVTOIN 03-27 14:19
PROVIDERS: ADMIT Internal Medicine; ATTEND Family Medicine
DX: I63.9 Cerebral infarction, unspecified (principal); G81.91 Hemiplegia, unspecified affecting right dominant side; J90 Pleural effusion, not elsewhere classified; E11.9 Type 2 diabetes mellitus without complications; R29.810 Facial weakness; R29.711 NIHSS score 11; E78.5 Hyperlipidemia, unspecified; F17.210 Nicotine dependence, cigarettes, uncomplicated; I65.23 Occlusion and stenosis of bilateral carotid arteries; I65.01 Occlusion and stenosis of right vertebral artery; I10 Essential (primary) hypertension; R29.6 Repeated falls; I25.10 Atherosclerotic heart disease of native coronary artery without angina pectoris; Z20.822 Contact with and (suspected) exposure to COVID-19; Z95.5 Presence of coronary angioplasty implant and graft; Z79.4 Long term (current) use of insulin; Z79.82 Long term (current) use of aspirin; Z79.899 Other long term (current) drug therapy; Z91.14 Patient's other noncompliance with medication regimen
CPT/HCPCS: 0240U; 36415; 36416; 70551; 80053; 80061; 83036; 85025; 93306; J1815; J2060

== ENCOUNTER 2021-08-24 11:27 | Outpatient (CLI) | payer MEDICARE ==
[2021-08-24 12:42] LABS: Hemoglobin 14.9 g/dL (13.5-17.5); Mean Corpuscular HGB CONC 30.2 g/dL (32.0-36.0); Mean Corpuscular Hemoglobin 27.4 pg (27.0-33.0); Mean Corpuscular Volume 90.8 fl (81.2-95.1); Platelet Count 250 10x3/uL (150-450); RBC Distribution Width 14.6 % (11.5-14.5); Red Blood Cell (RBC) Count 5.43 10x6/uL (4.32-5.72); White Blood Cell (WBC) Count 8.4 10x3/uL (3.5-10.5)
[2021-08-24 12:59] LABS: Anion Gap 16 mmol/L (10-20); BUN (Urea Nitrogen) 15 mg/dL (8.4-25.7); Calc. Creatinine Clearance 0 mL/min (70-130); Calcium 9.3 mg/dL (7.8-10.44); Carbon Dioxide 25 mmol/L (23-31); Chloride 105 mmol/L (98-107); Glucose 85 mg/dL (80-115); Potassium 4.6 mmol/L (3.5-5.1); Sodium 141 mmol/L (136-145)
[2021-08-25 17:03] LABS: SARS-CoV-2 PCR by NAA Not Detected (NotDetected)
== END 2021-08-24 11:28 | disposition home or self-care (01) ==
LOC: LABBT 11:27
PROVIDERS: ATTEND Thoracic Surgery (Cardiothoracic Vascular Surgery)
DX: Z01.812 Encounter for preprocedural laboratory examination (principal); I65.21 Occlusion and stenosis of right carotid artery; Z20.822 Contact with and (suspected) exposure to COVID-19
CPT/HCPCS: 80048; 85027; U0003; U0005

== ENCOUNTER 2021-08-24 12:15 | Inpatient (IN) | payer MEDICARE ==
[2021-08-24 10:09] VITALS: BMI 34.8
[2021-08-29] MEDS ORDERED: Sodium Chloride 0.9% 0 ML ONE (08:55)
[2021-08-29] MEDS ORDERED: Heparin 5,000 UNITS/ML VIAL ONE (08:57)
[2021-08-29] MEDS ORDERED: EPINEPHrine 1 MG/ML AMP ONE (08:57)
[2021-08-29] MEDS ORDERED: Bupivacaine PF 0.5% 30 ML VIAL ONE (08:57)
[2021-08-29] MEDS ORDERED: Protamine Sulfate 50 MG/5 ML VIAL ONE (08:57)
[2021-08-29] MEDS ORDERED: Dexamethasone 4 mg/ml Vial ONE (08:57)
[2021-08-29] MEDS ORDERED: Fentanyl 100 MCG/2 ML VIAL ONE (09:14)
[2021-08-29] MEDS ORDERED: Glycopyrrolate 0.2 MG/ML 5 ML SYRINGE ONE (09:15)
[2021-08-29] MEDS ORDERED: PROPOFOL 200 MG/20 ML VIAL ONE (09:15)
[2021-08-29] MEDS ORDERED: Ondansetron PF 4 MG/2 ML Vial ONE (09:15)
[2021-08-29] MEDS ORDERED: PHENYLEPHRINE-NS 100 MCG/ML 10 ML SYRINGE ONE ×2 (09:15→11:20)
[2021-08-29] MEDS ORDERED: Rocuronium Bromide 10 MG/ML (10ML VIAL) ONE (09:15)
[2021-08-29] MEDS ORDERED: Sodium Chloride 0.9% 10 ML ONE ×2 (09:15→09:16)
[2021-08-29] MEDS ORDERED: ePHEDrine 50 MG/ML VIAL ONE (09:15)
[2021-08-29] MEDS ORDERED: ceFAZolin 2 GM/Dextrose 50 ML IVPB ONE (09:16)
[2021-08-29] MEDS ORDERED: Acetaminophen 325 MG TAB PO PRN (11:07)
[2021-08-29] MEDS ORDERED: hydrALAZINE 20 MG/ML VIAL SLOW IVP PRN (11:07)
[2021-08-29] MEDS ORDERED: Nitroglycerin 50 MG/250 ML BOT 250 ML IVPB PRN (11:07)
[2021-08-29] MEDS ORDERED: Fentanyl 100 MCG/2 ML VIAL SLOW IVP PRN (11:07)
[2021-08-29] MEDS ORDERED: Ondansetron PF 4 MG/2 ML Vial IVP PRN (11:07)
[2021-08-29] MEDS ORDERED: Insulin Regular 300 UNITS/3 ML VIAL SC PRN (11:07)
[2021-08-29] MEDS ORDERED: Phenylephrine 40 MG in Sodium Chloride 0.9% 250 ML 246 ML IVPB PRN ×2 (11:07→11:30)
[2021-08-29] MEDS: Sodium Chloride 0.9% 1,000 ML IV SCH ×2 (11:47→20:00)
[2021-08-29] MEDS: ceFAZolin 2 GM/Dextrose 50 ML 2 GM in Premix Bag 1 BAG IVPB SCH (19:12)
[2021-08-29] MEDS: Lantus 1000 UNITS/10 ML VIAL SC SCH (20:48)
[2021-08-29] MEDS ORDERED: Atorvastatin Calcium 40 MG TAB PO SCH (21:00)
[2021-08-30] MEDS: ceFAZolin 2 GM/Dextrose 50 ML 2 GM in Premix Bag 1 BAG IVPB SCH (04:27)
[2021-08-30] MEDS: Sodium Chloride 0.9% 1,000 ML IV SCH (06:49)
[2021-08-30 08:12] VITALS: TEMP 98.3
[2021-08-30] MEDS: Lantus 1000 UNITS/10 ML VIAL SC SCH (08:14)
[2021-08-30] MEDS: Lisinopril 2.5 MG TAB PO SCH ×2 (08:14→08:18)
[2021-08-30] MEDS ORDERED: Aspirin 81 mg Enteric Coated Tablet PO SCH (09:00)
[2021-08-30] MEDS ORDERED: Clopidogrel Bisulfate 75 MG TAB PO SCH (09:00)
[2021-08-30] MEDS ORDERED: ceFAZolin 2 GM/Dextrose 50 ML 2 GM in Premix Bag 1 BAG IVPB SCH (10:00)
[2021-08-31] MEDS ORDERED: FLU VACC QS2021-22(65YR UP)/PF 240 MCG/0.7 ML SYRINGE IM ONE (09:00)
== END 2021-08-30 11:55 | disposition home or self-care (01) | DRG 36 ==
LOC: SURG A 08-29 06:44 → CCU 08-29 16:53
PROVIDERS: ADMIT Thoracic Surgery (Cardiothoracic Vascular Surgery); ATTEND Thoracic Surgery (Cardiothoracic Vascular Surgery)
PROC: 037H3DZ Dilation of Right Common Carotid Artery with Intraluminal Device, Percutaneous Approach (ICD-10-PCS; principal; 2021-08-29)
DX: I65.21 Occlusion and stenosis of right carotid artery (principal); Z20.822 Contact with and (suspected) exposure to COVID-19; I10 Essential (primary) hypertension; E11.9 Type 2 diabetes mellitus without complications; I25.10 Atherosclerotic heart disease of native coronary artery without angina pectoris; E78.5 Hyperlipidemia, unspecified; F17.210 Nicotine dependence, cigarettes, uncomplicated; R53.1 Weakness; Z95.5 Presence of coronary angioplasty implant and graft; Z79.01 Long term (current) use of anticoagulants; Z79.82 Long term (current) use of aspirin; Z79.84 Long term (current) use of oral hypoglycemic drugs; Z79.899 Other long term (current) drug therapy; I69.365 Other paralytic syndrome following cerebral infarction, bilateral
CPT/HCPCS: 36416; 76000; 94640; C1725; C1776; C1876; C1884; J0171; J0690; J1100; J1644; J1815; J2370; J2405; J2704; J2720; J3010; J3490; J7050; J7620; S0020

== ENCOUNTER 2021-09-04 01:43 | Inpatient (IN) | payer MEDICARE ==
[2021-09-04 15:55] VITALS: BMI 33.6
[2021-09-04] MEDS ORDERED: Acetaminophen 325 MG TAB PO PRN (17:56)
[2021-09-04] MEDS ORDERED: Dextrose 50% Abboject 50 ML SYRINGE SLOW IVP PRN (18:33)
[2021-09-04] MEDS ORDERED: HumaLOG 300 UNITS/3 ML VIAL SC PRN (18:33)
[2021-09-04] MEDS ORDERED: Dextrose 5% in Water 1,000 ML IV PRN (18:33)
[2021-09-04 18:50] LABS: #Eosinphils 0.2 thou/uL (0.0-0.7); #Monocytes 0.9 thou/uL (0.11-0.59); #Neutrophils 4.7 thou/uL (1.40-6.50); %Basophils 0.3 % (0.0-1.0); %Eosinophils 2.3 % (0.0-10.0); %Lymphocytes 25.2 % (21.0-51.0); %Monocytes 11.4 % (0.0-10.0); %Neutrophils 60.8 % (42.0-75.0); Hemoglobin 14.2 g/dL (14.0-18.0); Mean Corpuscular HGB CONC 30.5 g/dL (32.0-36.0); Mean Corpuscular Hemoglobin 28.1 pg (27.0-31.0); Mean Corpuscular Volume 92.3 fL (78.0-98.0); Mean Platelet Volume 9.5 fL (7.4-10.4); Platelet Count 221 thou/uL (130-400); RBC Distribution Width 13.8 % (11.5-14.5); Red Blood Cell (RBC) Count 5.03 mill/uL (4.70-6.10); White Blood Cell (WBC) Count 7.8 thou/uL (4.8-10.8)
[2021-09-04 19:05] LABS: Anion Gap 16 mmol/L (10-20); BUN (Urea Nitrogen) 13 mg/dL (8.4-25.7); Calc. Creatinine Clearance 158 mL/min (70-130); Calcium 8.9 mg/dL (7.8-10.44); Carbon Dioxide 24 mmol/L (23-31); Chloride 105 mmol/L (98-107); Glucose 122 mg/dL (80-115); Potassium 3.8 mmol/L (3.5-5.1); Sodium 141 mmol/L (136-145)
[2021-09-04] MEDS: Atorvastatin Calcium 40 MG TAB PO SCH (21:21)
[2021-09-04] MEDS: Famotidine 20 MG TAB PO SCH (21:21)
[2021-09-05] MEDS: Lisinopril 2.5 MG TAB PO SCH (08:42)
[2021-09-05] MEDS: Aspirin 81 mg Enteric Coated Tablet PO SCH (08:42)
[2021-09-05] MEDS: metFORMIN 500 MG TAB PO SCH ×2 (08:42→17:28)
[2021-09-05] MEDS: Famotidine 20 MG TAB PO SCH ×2 (08:42→20:46)
[2021-09-05] MEDS ORDERED: Enoxaparin Sodium 40 MG/0.4 ML SYRINGE SC SCH (09:00)
[2021-09-05] MEDS ORDERED: Communication Order-Pharmacy FS SCH (13:30)
[2021-09-05] MEDS: Atorvastatin Calcium 40 MG TAB PO SCH (20:46)
[2021-09-06] MEDS: Lisinopril 2.5 MG TAB PO SCH (05:50)
[2021-09-06] MEDS: Aspirin 81 mg Enteric Coated Tablet PO SCH (05:50)
[2021-09-06] MEDS: Famotidine 20 MG TAB PO SCH ×2 (05:50→21:20)
[2021-09-06 05:53] LABS: Anion Gap 13 mmol/L (10-20); BUN (Urea Nitrogen) 12 mg/dL (8.4-25.7); Calc. Creatinine Clearance 166 mL/min (70-130); Calcium 8.9 mg/dL (7.8-10.44); Carbon Dioxide 27 mmol/L (23-31); Chloride 104 mmol/L (98-107); Glucose 115 mg/dL (80-115); Magnesium 1.9 mg/dL (1.6-2.6); Potassium 3.9 mmol/L (3.5-5.1); Sodium 140 mmol/L (136-145)
[2021-09-06] MEDS ORDERED: Sodium Chloride 0.9% 1,000 ML IV SCH (06:00)
[2021-09-06] MEDS ORDERED: Fentanyl 100 MCG/2 ML VIAL ONE ×2 (08:48→11:11)
[2021-09-06] MEDS ORDERED: Heparin 10,000 UNITS/ 10 ML VIAL ONE (08:48)
[2021-09-06] MEDS ORDERED: Midazolam HCl 2 mg/2 ml Vial ONE (08:48)
[2021-09-06] MEDS ORDERED: Empagliflozin 10 MG TAB PO SCH (09:00)
[2021-09-06] MEDS ORDERED: Iopamidol 370 76% 50 ML VIAL FS ONE (09:23)
[2021-09-06] MEDS ORDERED: Iopamidol 370 76% 100 ML VIAL ONE (09:23)
[2021-09-06] MEDS ORDERED: Magnesium 2 GM/50 ML 2 GM in Premix Bag 1 BAG IVPB SCH (09:45)
[2021-09-06] MEDS ORDERED: Nitroglycerin 0.4 MG TAB (25 Tab Bottle) SL PRN (11:19)
[2021-09-06] MEDS ORDERED: Sodium Chloride 0.9% 200 ML IV PRN (11:19)
[2021-09-06] MEDS: Atorvastatin Calcium 40 MG TAB PO SCH (21:20)
[2021-09-07 06:05] LABS: Anion Gap 17 mmol/L (10-20); BUN (Urea Nitrogen) 13 mg/dL (8.4-25.7); Calc. Creatinine Clearance 164 mL/min (70-130); Calcium 9.1 mg/dL (7.8-10.44); Carbon Dioxide 26 mmol/L (23-31); Chloride 102 mmol/L (98-107); Glucose 121 mg/dL (80-115); Potassium 3.7 mmol/L (3.5-5.1); Sodium 141 mmol/L (136-145)
[2021-09-07] MEDS ORDERED: Furosemide 20 MG TAB PO SCH (09:00)
[2021-09-07] MEDS ORDERED: Furosemide 20 MG/2 ML VIAL SLOW IVP SCH (09:45)
[2021-09-07] MEDS: Lisinopril 2.5 MG TAB PO SCH (10:08)
[2021-09-07] MEDS: Famotidine 20 MG TAB PO SCH ×2 (10:09→21:20)
[2021-09-07] MEDS: Aspirin 81 mg Enteric Coated Tablet PO SCH (10:09)
[2021-09-07] MEDS: Clopidogrel Bisulfate 75 MG TAB PO SCH (10:09)
[2021-09-07] MEDS: Potassium Chloride 20 MEQ TAB PO SCH (10:09)
[2021-09-07] MEDS ORDERED: Potassium Chloride 20 MEQ TAB PO SCH (12:00)
[2021-09-07] MEDS ORDERED: Spironolactone 25 MG TAB PO SCH (13:30)
[2021-09-07] MEDS: Atorvastatin Calcium 40 MG TAB PO SCH (21:20)
[2021-09-07] MEDS ORDERED: traMADol HCl 50 MG TAB PO PRN (22:41)
[2021-09-08] MEDS ORDERED: Spironolactone 25 MG TAB PO SCH (08:00)
[2021-09-08 08:10] LABS: Anion Gap 16 mmol/L (10-20); BUN (Urea Nitrogen) 14 mg/dL (8.4-25.7); Calc. Creatinine Clearance 158 mL/min (70-130); Calcium 9.1 mg/dL (7.8-10.44); Carbon Dioxide 28 mmol/L (23-31); Chloride 101 mmol/L (98-107); Glucose 107 mg/dL (80-115); Potassium 3.8 mmol/L (3.5-5.1); Sodium 141 mmol/L (136-145)
[2021-09-08] MEDS: Lisinopril 2.5 MG TAB PO SCH (09:19)
[2021-09-08] MEDS: Clopidogrel Bisulfate 75 MG TAB PO SCH (09:20)
[2021-09-08] MEDS: Potassium Chloride 20 MEQ TAB PO SCH (09:20)
[2021-09-08] MEDS: Famotidine 20 MG TAB PO SCH (09:21)
[2021-09-08] MEDS: Aspirin 81 mg Enteric Coated Tablet PO SCH (09:21)
[2021-09-08 17:24] VITALS: BP 95/56; TEMP 97.9
== END 2021-09-08 17:35 | disposition home or self-care (01) | DRG 286 ==
LOC: 2NO 15:00 → OBSVTOIN 09-05 18:02
PROVIDERS: ADMIT Internal Medicine; ATTEND Internal Medicine
PROC: 4A023N7 Measurement of Cardiac Sampling and Pressure, Left Heart, Percutaneous Approach (ICD-10-PCS; principal; 2021-09-06)
PROC: B2151ZZ Fluoroscopy of Left Heart using Low Osmolar Contrast (ICD-10-PCS; 2021-09-06)
PROC: B2111ZZ Fluoroscopy of Multiple Coronary Arteries using Low Osmolar Contrast (ICD-10-PCS; 2021-09-06)
DX: I11.0 Hypertensive heart disease with heart failure (principal); I50.23 Acute on chronic systolic (congestive) heart failure; J96.21 Acute and chronic respiratory failure with hypoxia; E78.5 Hyperlipidemia, unspecified; I25.10 Atherosclerotic heart disease of native coronary artery without angina pectoris; F17.210 Nicotine dependence, cigarettes, uncomplicated; I42.9 Cardiomyopathy, unspecified; E11.69 Type 2 diabetes mellitus with other specified complication; E66.9 Obesity, unspecified; E83.42 Hypomagnesemia; J44.9 Chronic obstructive pulmonary disease, unspecified; E87.6 Hypokalemia; I25.2 Old myocardial infarction; Z79.82 Long term (current) use of aspirin; Z79.4 Long term (current) use of insulin; Z79.84 Long term (current) use of oral hypoglycemic drugs; Z79.899 Other long term (current) drug therapy; Z95.5 Presence of coronary angioplasty implant and graft; Z86.73 Personal history of transient ischemic attack (TIA), and cerebral infarction without residual deficits; Z68.31 Body mass index [BMI] 31.0-31.9, adult
CPT/HCPCS: 36415; 36416; 80048; 83735; 85025; 93306; 93458; 93798; 94760; 96372; 99152; 99153; G0378; J1644; J1650; J1940; J2250; J3010; J3475; J7050; Q9967

== ENCOUNTER 2021-09-19 15:45 | Inpatient (IN) | payer MEDICARE ==
[2021-09-25] MEDS ORDERED: Bupivacaine PF 0.5% 30 ML VIAL ONE (09:07)
[2021-09-25] MEDS ORDERED: Albumin 5% 500 ML ONE (09:07)
[2021-09-25] MEDS ORDERED: EPINEPHrine 1 MG/ML AMP ONE (09:07)
[2021-09-25] MEDS ORDERED: Dexamethasone 4 mg/ml Vial ONE (09:07)
[2021-09-25] MEDS ORDERED: Heparin 10,000 UNITS/1 ML VIAL 30,000 UNITS in Sodium Chloride 0.9% 1,000 ML FS SCH (09:15)
[2021-09-25] MEDS ORDERED: Sodium Chloride 0.9% 10 ML ONE (09:18)
[2021-09-25] MEDS ORDERED: Lidocaine 1% MPF 2 ML VIAL ONE (09:22)
[2021-09-25] MEDS ORDERED: ceFAZolin 2 GM/Dextrose 50 ML IVPB ONE (09:34)
[2021-09-25] MEDS ORDERED: Midazolam HCl 2 mg/2 ml Vial ONE (09:46)
[2021-09-25] MEDS ORDERED: Fentanyl 250 MCG/5 ML VIAL ONE (09:46)
[2021-09-25] MEDS ORDERED: Dexmedetomidine 200 MCG/2 ML VIAL ONE (09:46)
[2021-09-25] MEDS ORDERED: Insulin Regular 300 UNITS/3 ML VIAL ONE (09:46)
[2021-09-25] MEDS ORDERED: Phenylephrine 10 MG/ML VIAL ONE (09:46)
[2021-09-25] MEDS ORDERED: Lidocaine 2% PF 100 mg/5 ml Syringe ONE (09:59)
[2021-09-25] MEDS ORDERED: Potassium Chloride 60 MEQ/30 ML VIAL ONE (09:59)
[2021-09-25] MEDS ORDERED: Cardioplegic Soln 1,000 ML BAG ONE (09:59)
[2021-09-25] MEDS ORDERED: Magnesium Sulfate 1 GM/2 ML VIAL ONE (09:59)
[2021-09-25] MEDS ORDERED: Lidocaine 1% PF 5 ML VIAL ONE (09:59)
[2021-09-25] MEDS ORDERED: PROPOFOL 200 MG/20 ML VIAL ONE (09:59)
[2021-09-25] MEDS ORDERED: Calcium Chloride 1 GM/10 ML Abboject SYRINGE ONE (09:59)
[2021-09-25] MEDS ORDERED: Rocuronium Bromide 10 MG/ML (10ML VIAL) ONE (09:59)
[2021-09-25] MEDS ORDERED: Protamine Sulfate 250 MG/25 ML VIAL ONE (09:59)
[2021-09-25] MEDS ORDERED: Ketorolac Tromethamine 30 MG/ML VIAL ONE (09:59)
[2021-09-25] MEDS ORDERED: Thrombin 5000 UNITS/5 ML VIAL ONE (09:59)
[2021-09-25] MEDS ORDERED: Heparin 5,000 UNITS/ML VIAL ONE (09:59)
[2021-09-25] MEDS ORDERED: Papaverine 60 MG/2 ML VIAL ONE (09:59)
[2021-09-25] MEDS ORDERED: Vecuronium 10 MG VIAL ONE (09:59)
[2021-09-25] MEDS ORDERED: Mannitol 12.5 GM/50 ML ONE (09:59)
[2021-09-25] MEDS ORDERED: ePHEDrine 50 MG/ML VIAL ONE (09:59)
[2021-09-25] MEDS ORDERED: Heparin 30,000 units/30 ml VIAL ONE (09:59)
[2021-09-25] MEDS ORDERED: Sodium Bicarb 50 MEQ/50 ML Abboject 8.4% SYRINGE ONE (09:59)
[2021-09-25] MEDS ORDERED: Aminocaproic Acid 5 GM/20 ML VIAL ONE (09:59)
[2021-09-25] MEDS ORDERED: PHENYLEPHRINE-NS 100 MCG/ML 10 ML SYRINGE ONE (10:58)
[2021-09-25] MEDS ORDERED: Gentamicin 80 MG/2 ML VIAL ONE (11:22)
[2021-09-25] MEDS ORDERED: Fentanyl 100 MCG/2 ML VIAL SLOW IVP PRN (13:35)
[2021-09-25] MEDS ORDERED: Bisacodyl 5 MG TAB PO PRN (13:35)
[2021-09-25] MEDS ORDERED: niCARdipine 25 MG in Sodium Chloride 0.9% 250 ML 250 ML IVPB PRN (13:35)
[2021-09-25] MEDS ORDERED: Nitroglycerin 50 MG/250 ML BOT 250 ML IVPB PRN (13:35)
[2021-09-25] MEDS ORDERED: Phenylephrine 40 MG in Sodium Chloride 0.9% 250 ML 250 ML IVPB PRN (13:35)
[2021-09-25] MEDS ORDERED: Post-Op Insulin Drip Protocol IVPB ONE (13:35)
[2021-09-25] MEDS ORDERED: Bisacodyl 10 MG SUPP PR PRN (13:35)
[2021-09-25] MEDS ORDERED: Acetaminophen 325 MG TAB PO PRN (13:35)
[2021-09-25] MEDS ORDERED: HYDROcodone/Acetaminophen 5/325 mg Tablet PO PRN (13:35)
[2021-09-25] MEDS ORDERED: Potassium Chloride 20 MEQ/100 ML PREMIX BAG IVPB PRN (13:35)
[2021-09-25] MEDS ORDERED: Ondansetron PF 4 MG/2 ML Vial IVP PRN (13:35)
[2021-09-25] MEDS ORDERED: Guaifenesin DM 100-10/5 ML UDCUP PO PRN (13:35)
[2021-09-25] MEDS ORDERED: Magnesium 2 GM/50 ML 2 GM in Premix Bag 1 BAG IVPB SCH (13:35)
[2021-09-25] MEDS ORDERED: Morphine 2 MG/ML VIAL SLOW IVP PRN (13:35)
[2021-09-25] MEDS ORDERED: Mag-Al 1200 mg/1200 mg/30 ML UDCUP PO PRN (13:35)
[2021-09-25] MEDS ORDERED: Promethazine HCl 25 MG/ML VIAL IM PRN (13:35)
[2021-09-25] MEDS ORDERED: Hetastarch 6% 500 ML 500 ML IVPB PRN (13:35)
[2021-09-25 13:54] LABS: #Basophils 0.1 thou/uL (0.0-0.2); #Eosinphils 0.4 thou/uL (0.0-0.7); #Monocytes 0.2 thou/uL (0.11-0.59); #Neutrophils 13.5 thou/uL (1.40-6.50); %Basophils 0.5 % (0.0-1.0); %Eosinophils 2.4 % (0.0-10.0); %Lymphocytes 12.3 % (21.0-51.0); %Neutrophils 83.8 % (42.0-75.0); Mean Corpuscular HGB CONC 30.8 g/dL (32.0-36.0); Mean Corpuscular Volume 90.8 fL (78.0-98.0); Mean Platelet Volume 9.6 fL (7.4-10.4); Platelet Count 176 thou/uL (130-400); RBC Distribution Width 13.4 % (11.5-14.5); Red Blood Cell (RBC) Count 4.29 mill/uL (4.70-6.10); White Blood Cell (WBC) Count 16.1 thou/uL (4.8-10.8)
[2021-09-25] MEDS: D5 1/2 NS w/20 mEq KCL 1,000 ML IV SCH (13:59)
[2021-09-25] MEDS ORDERED: Lantus 1000 UNITS/10 ML VIAL SC PRN (14:00)
[2021-09-25] MEDS ORDERED: Dextrose 50% Abboject 50 ML SYRINGE SLOW IVP PRN (14:00)
[2021-09-25] MEDS ORDERED: Dextrose 5% in Water 1,000 ML IV PRN (14:00)
[2021-09-25] MEDS ORDERED: HUMULIN R 100 UNITS in Sodium Chloride 0.9% 100 ML IVPB SCH (14:00)
[2021-09-25] MEDS ORDERED: Morphine 4 MG/ML VIAL ONE (14:04)
[2021-09-25 14:05] LABS: INR-International Normal Ratio 1.2; Prothrombin Time 15.5 sec (12.0-14.7)
[2021-09-25 14:06] LABS: PTT 36.7 sec (22.9-36.1)
[2021-09-25 14:09] LABS: Actual Bicarbonate (HCO3a) 21.1 mEq/L (22-28); Base Excess (BEa) -4.8 mEq/L (-2.0 to +3.0); CO2 Tension 42.1 mmHg (35.0-45.0); Calcium, Ionized (arterial) 1.15 mmol/L (1.12-1.30); Carboxyhemoglobin (COHb) 1.9 gm% (0.0-3.0); Hemoglobin (Hb) 12.7 g/dL (14.0-18.0); O2 Tension (PaO2), arterial 158.1 mmHg (> 80.0); Potassium - ABG Lab 3.94 mmol/L (3.70-5.30); Puncture Site ALINE; pH, Arterial 7.32 (7.35-7.45)
[2021-09-25 14:17] LABS: Anion Gap 10 mmol/L (10-20); BUN (Urea Nitrogen) 17 mg/dL (8.4-25.7); Calc. Creatinine Clearance 160 mL/min (70-130); Calcium 7.9 mg/dL (7.8-10.44); Carbon Dioxide 21 mmol/L (23-31); Chloride 111 mmol/L (98-107); Glucose 178 mg/dL (80-115); Sodium 138 mmol/L (136-145)
[2021-09-25 14:17] LABS: ALV-art Gradient 74.475 mmHg (0-20)
[2021-09-25] MEDS: Fentanyl 100 MCG/2 ML VIAL SLOW IVP PRN ×3 (14:17→23:57)
[2021-09-25] MEDS ORDERED: Morphine 4 MG/ML VIAL SLOW IVP PRN (14:30)
[2021-09-25] MEDS ORDERED: Lorazepam 2 MG/ML VIAL ONE (14:33)
[2021-09-25] MEDS ORDERED: Lorazepam 2 MG/ML VIAL SLOW IVP PRN ×2 (14:36→16:47)
[2021-09-25] MEDS ORDERED: FLU VACC QS2021-22(65YR UP)/PF 240 MCG/0.7 ML SYRINGE IM ONE (15:45)
[2021-09-25] MEDS ORDERED: Phenylephrine 40 MG in Sodium Chloride 0.9% 250 ML 250 ML IVPB SCH (16:00)
[2021-09-25] MEDS: Ketorolac Tromethamine 30 MG/ML VIAL IVP SCH ×2 (17:59→23:57)
[2021-09-25] MEDS: CEFAZOLIN 2 GM, Admixture Fee 1 EACH in Sodium Chloride 0.9% 100 ML IVPB SCH (18:00)
[2021-09-25] MEDS ORDERED: Albuterol Sulfate 2.5 mg/3 ml Neb NEB PRN (18:08)
[2021-09-25 19:35] LABS: Hemoglobin 10.9 g/dL (14.0-18.0)
[2021-09-25 19:49] LABS: Potassium 4.6 mmol/L (3.5-5.1)
[2021-09-25 20:35] LABS: Actual Bicarbonate (HCO3a) 21.1 mEq/L (22-28); CO2 Tension 43.2 mmHg (35.0-45.0); Calcium, Ionized (arterial) 1.13 mmol/L (1.12-1.30); Carboxyhemoglobin (COHb) 0.6 gm% (0.0-3.0); Hemoglobin (Hb) 11.2 g/dL (14.0-18.0); O2 Tension (PaO2), arterial 176.3 mmHg (> 80.0); Potassium - ABG Lab 4.23 mmol/L (3.70-5.30); pH, Arterial 7.31 (7.35-7.45)
[2021-09-25] MEDS: Atorvastatin Calcium 40 MG TAB PO SCH (21:42)
[2021-09-25] MEDS: Famotidine/PF 20 mg/2ml Vial SLOW IVP SCH (21:42)
[2021-09-25] MEDS ORDERED: Vancomycin HCl 1.5 GM in Sodium Chloride 0.9% 250 ML 300 ML IVPB SCH (23:00)
[2021-09-26 06:19] LABS: #Lymphocytes 0.9 thou/uL (1.20-3.40); #Monocytes 0.9 thou/uL (0.11-0.59); #Neutrophils 14.9 thou/uL (1.40-6.50); %Basophils 0.1 % (0.0-1.0); %Eosinophils 0.3 % (0.0-10.0); %Lymphocytes 5.2 % (21.0-51.0); %Monocytes 5.1 % (0.0-10.0); %Neutrophils 89.4 % (42.0-75.0); Anion Gap 10 mmol/L (10-20); BUN (Urea Nitrogen) 15 mg/dL (8.4-25.7); Calc. Creatinine Clearance 165 mL/min (70-130); Calcium 8.1 mg/dL (7.8-10.44); Carbon Dioxide 23 mmol/L (23-31); Chloride 108 mmol/L (98-107); Glucose 143 mg/dL (80-115); Hemoglobin 10.2 g/dL (14.0-18.0); Mean Corpuscular HGB CONC 30.8 g/dL (32.0-36.0); Mean Corpuscular Hemoglobin 28.2 pg (27.0-31.0); Mean Corpuscular Volume 91.8 fL (78.0-98.0); Mean Platelet Volume 9.6 fL (7.4-10.4); Platelet Count 203 thou/uL (130-400); Potassium 4.2 mmol/L (3.5-5.1); RBC Distribution Width 13.6 % (11.5-14.5); Red Blood Cell (RBC) Count 3.62 mill/uL (4.70-6.10); Sodium 137 mmol/L (136-145); White Blood Cell (WBC) Count 16.7 thou/uL (4.8-10.8)
[2021-09-26] MEDS: CEFAZOLIN 2 GM, Admixture Fee 1 EACH in Sodium Chloride 0.9% 100 ML IVPB SCH ×2 (06:28→10:18)
[2021-09-26] MEDS: Ketorolac Tromethamine 30 MG/ML VIAL IVP SCH ×3 (06:32→17:12)
[2021-09-26] MEDS: Famotidine/PF 20 mg/2ml Vial SLOW IVP SCH ×2 (08:13→20:03)
[2021-09-26] MEDS: Magnesium 2 GM/50 ML 2 GM in Premix Bag 1 BAG IVPB SCH (08:13)
[2021-09-26] MEDS: Aspirin 325 MG TAB PO SCH (08:13)
[2021-09-26 10:30] LABS: Actual Bicarbonate (HCO3a) 27.4 mEq/L (22-28); Analyzer IN Cardio OR; Base Excess (BEa) 1.5 mEq/L (-2.0 to +3.0); CO2 Tension 47.9 mmHg (35.0-45.0); Calcium, Ionized (arterial) 1.21 mmol/L (1.12-1.30); Carboxyhemoglobin (COHb) 2.6 gm% (0.0-3.0); Hemoglobin (Hb) 13.5 g/dL (14.0-18.0); O2 Tension (PaO2), arterial 141.3 mmHg (> 80.0); Potassium - ABG Lab 4.19 mmol/L (3.70-5.30); pH, Arterial 7.38 (7.35-7.45)
[2021-09-26 10:31] LABS: Actual Bicarbonate (HCO3a) 24.4 mEq/L (22-28); Analyzer IN Cardio OR; Base Excess (BEa) 0.7 mEq/L (-2.0 to +3.0); CO2 Tension 35.9 mmHg (35.0-45.0); Calcium, Ionized (arterial) 1.06 mmol/L (1.12-1.30); Hemoglobin (Hb) 10.6 g/dL (14.0-18.0); O2 Tension (PaO2), arterial 284.2 mmHg (> 80.0); Potassium - ABG Lab 4.42 mmol/L (3.70-5.30); pH, Arterial 7.45 (7.35-7.45)
[2021-09-26 10:31] LABS: Actual Bicarbonate (HCO3v) 27 mEq/L (22-28); Analyzer IN Cardio OR; Base Excess 0.8 mEq/L (-2.0 to +3.0); Calcium, Ionized (venous) 1.09 mmol/L (1.16-1.32); Chloride (VBG) 104 mmol/L (98-106); Hemoglobin (Hb) 10.5 g/dL (12.6-17.4); Potassium (VBG) 4.81 mmol/L (3.70-5.30); Sodium 133.6 mmol/L (133-146); pH (venous) 7.36 (7.32-7.43)
[2021-09-26 10:31] LABS: Actual Bicarbonate (HCO3a) 26.7 mEq/L (22-28); Analyzer IN Cardio OR; Base Excess (BEa) 1.1 mEq/L (-2.0 to +3.0); CO2 Tension 45.8 mmHg (35.0-45.0); Calcium, Ionized (arterial) 1.18 mmol/L (1.12-1.30); Carboxyhemoglobin (COHb) 2.5 gm% (0.0-3.0); Hemoglobin (Hb) 13.4 g/dL (14.0-18.0); O2 Tension (PaO2), arterial 438.1 mmHg (> 80.0); Potassium - ABG Lab 4.17 mmol/L (3.70-5.30); pH, Arterial 7.38 (7.35-7.45)
[2021-09-26 10:32] LABS: Actual Bicarbonate (HCO3a) 22.4 mEq/L (22-28); Analyzer IN Cardio OR; Base Excess (BEa) -3.1 mEq/L (-2.0 to +3.0); CO2 Tension 41.9 mmHg (35.0-45.0); Calcium, Ionized (arterial) 1.14 mmol/L (1.12-1.30); Carboxyhemoglobin (COHb) 1.8 gm% (0.0-3.0); Hemoglobin (Hb) 12.5 g/dL (14.0-18.0); Potassium - ABG Lab 4.24 mmol/L (3.70-5.30); pH, Arterial 7.35 (7.35-7.45)
[2021-09-26 10:32] LABS: Actual Bicarbonate (HCO3a) 25.1 mEq/L (22-28); Analyzer IN Cardio OR; Base Excess (BEa) 0.2 mEq/L (-2.0 to +3.0); CO2 Tension 41.7 mmHg (35.0-45.0); Calcium, Ionized (arterial) 1.08 mmol/L (1.12-1.30); Hemoglobin (Hb) 10.3 g/dL (14.0-18.0); O2 Tension (PaO2), arterial 366.7 mmHg (> 80.0); Potassium - ABG Lab 4.93 mmol/L (3.70-5.30)
[2021-09-26 10:32] LABS: Puncture Site Arterial Line
[2021-09-26 10:33] LABS: Puncture Site Arterial Line
[2021-09-26 10:33] LABS: Puncture Site Arterial Line
[2021-09-26 10:34] LABS: O2 Tension (PaO2), arterial 516.6 mmHg (> 80.0); Puncture Site Arterial Line
[2021-09-26 10:34] LABS: Puncture Site Arterial Line
[2021-09-26] MEDS ORDERED: Vancomycin 1.5 GRAM/300 ML BAG 1.5 GM in Premix Bag 1 BAG IVPB SCH (11:00)
[2021-09-26] MEDS: Insulin Regular 300 UNITS/3 ML VIAL SC PRN ×2 (13:12→16:25)
[2021-09-26] MEDS: D5 1/2 NS w/20 mEq KCL 1,000 ML IV SCH (13:53)
[2021-09-26] MEDS: Atorvastatin Calcium 40 MG TAB PO SCH (20:03)
[2021-09-27] MEDS: Ketorolac Tromethamine 30 MG/ML VIAL IVP SCH ×5 (01:41→23:39)
[2021-09-27 05:06] LABS: #Eosinphils 0.4 thou/uL (0.0-0.7); #Lymphocytes 1.7 thou/uL (1.20-3.40); #Neutrophils 7.4 thou/uL (1.40-6.50); %Basophils 0.3 % (0.0-1.0); %Eosinophils 3.4 % (0.0-10.0); %Lymphocytes 16.3 % (21.0-51.0); %Monocytes 9.2 % (0.0-10.0); %Neutrophils 70.8 % (42.0-75.0); Hemoglobin 9.3 g/dL (14.0-18.0); Mean Corpuscular HGB CONC 31.1 g/dL (32.0-36.0); Mean Corpuscular Hemoglobin 28.3 pg (27.0-31.0); Mean Platelet Volume 10.3 fL (7.4-10.4); Platelet Count 156 thou/uL (130-400); RBC Distribution Width 13.6 % (11.5-14.5); White Blood Cell (WBC) Count 10.5 thou/uL (4.8-10.8)
[2021-09-27 05:25] LABS: Anion Gap 9 mmol/L (10-20); BUN (Urea Nitrogen) 19 mg/dL (8.4-25.7); Calc. Creatinine Clearance 139 mL/min (70-130); Calcium 7.9 mg/dL (7.8-10.44); Carbon Dioxide 26 mmol/L (23-31); Chloride 108 mmol/L (98-107); Glucose 147 mg/dL (80-115); Potassium 4.5 mmol/L (3.5-5.1); Sodium 138 mmol/L (136-145)
[2021-09-27 05:42] VITALS: BMI 29.1
[2021-09-27] MEDS: Famotidine/PF 20 mg/2ml Vial SLOW IVP SCH (10:04)
[2021-09-27] MEDS: Aspirin 325 MG TAB PO SCH (10:04)
[2021-09-27] MEDS: Magnesium 2 GM/50 ML 2 GM in Premix Bag 1 BAG IVPB SCH (10:04)
[2021-09-27] MEDS: Insulin Regular 300 UNITS/3 ML VIAL SC PRN ×2 (10:11→17:13)
[2021-09-27] MEDS ORDERED: Nitroglycerin 0.4 MG TAB (25 Tab Bottle) SL PRN (13:38)
[2021-09-27] MEDS ORDERED: Guaifenesin DM 100-10/5 ML UDCUP PO PRN (13:38)
[2021-09-27] MEDS ORDERED: Milk Of Magnesia 30 ML UDCUP PO PRN (13:38)
[2021-09-27] MEDS ORDERED: Mag-Al 1200 mg/1200 mg/30 ML UDCUP PO PRN (13:38)
[2021-09-27] MEDS ORDERED: Mineral Oil ENEMA PR PRN (13:38)
[2021-09-27] MEDS ORDERED: Bisacodyl 10 MG SUPP PR PRN (13:38)
[2021-09-27] MEDS ORDERED: diphenhydrAMINE 25 MG CAP PO PRN (13:38)
[2021-09-27] MEDS ORDERED: Bisacodyl 5 MG TAB PO PRN (13:38)
[2021-09-27] MEDS: HYDROcodone/Acetaminophen 5/325 mg Tablet PO PRN (16:38)
[2021-09-27] MEDS: Lantus 1000 UNITS/10 ML VIAL SC SCH (21:06)
[2021-09-27] MEDS: Atorvastatin Calcium 40 MG TAB PO SCH (21:06)
[2021-09-28] MEDS: Ketorolac Tromethamine 30 MG/ML VIAL IVP SCH ×3 (05:18→18:14)
[2021-09-28] MEDS ORDERED: Aspirin 81 mg Enteric Coated Tablet ONE (09:12)
[2021-09-28] MEDS ORDERED: Aspirin 325 MG TAB ONE (09:12)
[2021-09-28] MEDS: Furosemide 40 MG TAB PO SCH (09:21)
[2021-09-28] MEDS: Potassium Chloride 10 MEQ TAB PO SCH (09:21)
[2021-09-28] MEDS: glipiZIDE 10 MG TAB PO SCH (09:21)
[2021-09-28] MEDS: Clopidogrel Bisulfate 75 MG TAB PO SCH (09:21)
[2021-09-28] MEDS: Spironolactone 25 MG TAB PO SCH (09:22)
[2021-09-28] MEDS: Aspirin 81 mg Enteric Coated Tablet PO SCH (09:22)
[2021-09-28] MEDS: Lantus 1000 UNITS/10 ML VIAL SC SCH ×2 (12:01→21:15)
[2021-09-28] MEDS: Atorvastatin Calcium 40 MG TAB PO SCH (21:14)
[2021-09-28] MEDS: Zolpidem Tartrate 5 MG TAB PO PRN (21:14)
[2021-09-29] MEDS ORDERED: Metolazone 5 MG TAB PO SCH (07:00)
[2021-09-29] MEDS: Spironolactone 25 MG TAB PO SCH (08:20)
[2021-09-29] MEDS: Clopidogrel Bisulfate 75 MG TAB PO SCH (08:20)
[2021-09-29] MEDS: Potassium Chloride 10 MEQ TAB PO SCH (08:20)
[2021-09-29] MEDS: glipiZIDE 10 MG TAB PO SCH (08:20)
[2021-09-29] MEDS: Furosemide 40 MG TAB PO SCH (08:21)
[2021-09-29] MEDS: Aspirin 81 mg Enteric Coated Tablet PO SCH (08:21)
[2021-09-29] MEDS: Lantus 1000 UNITS/10 ML VIAL SC SCH ×2 (08:22→20:17)
[2021-09-29] MEDS: Atorvastatin Calcium 40 MG TAB PO SCH (20:15)
[2021-09-29] MEDS: Zolpidem Tartrate 5 MG TAB PO PRN (20:15)
[2021-09-29] MEDS: HYDROcodone/Acetaminophen 5/325 mg Tablet PO PRN (20:16)
[2021-09-30] MEDS: glipiZIDE 10 MG TAB PO SCH (08:57)
[2021-09-30] MEDS: Spironolactone 25 MG TAB PO SCH (08:57)
[2021-09-30] MEDS: Lantus 1000 UNITS/10 ML VIAL SC SCH (08:57)
[2021-09-30] MEDS: Aspirin 81 mg Enteric Coated Tablet PO SCH (08:57)
[2021-09-30] MEDS: Potassium Chloride 10 MEQ TAB PO SCH (08:57)
[2021-09-30] MEDS: Clopidogrel Bisulfate 75 MG TAB PO SCH (08:57)
[2021-09-30] MEDS: Furosemide 40 MG TAB PO SCH (08:57)
[2021-09-30 09:36] VITALS: BP 107/63; TEMP 98
== END 2021-09-30 11:15 | DRG 236 ==
LOC: SURG A 09-25 08:04 → CCU 09-25 12:57 → 2NO 09-27 16:18
PROVIDERS: ADMIT Thoracic Surgery (Cardiothoracic Vascular Surgery); ATTEND Thoracic Surgery (Cardiothoracic Vascular Surgery)
PROC: 0213093 Bypass Coronary Artery, Four or More Arteries from Coronary Artery with Autologous Venous Tissue, Open Approach (ICD-10-PCS; principal; 2021-09-25)
PROC: 06BQ4ZZ Excision of Left Saphenous Vein, Percutaneous Endoscopic Approach (ICD-10-PCS; 2021-09-25)
PROC: 02L70CK Occlusion of Left Atrial Appendage with Extraluminal Device, Open Approach (ICD-10-PCS; 2021-09-25)
PROC: 5A1221Z Performance of Cardiac Output, Continuous (ICD-10-PCS; 2021-09-25)
PROC: 30233R1 Transfusion of Nonautologous Platelets into Peripheral Vein, Percutaneous Approach (ICD-10-PCS; 2021-09-25)
PROC: 30233J1 Transfusion of Nonautologous Serum Albumin into Peripheral Vein, Percutaneous Approach (ICD-10-PCS; 2021-09-25)
DX: I25.10 Atherosclerotic heart disease of native coronary artery without angina pectoris (principal); I50.22 Chronic systolic (congestive) heart failure; E11.9 Type 2 diabetes mellitus without complications; E78.2 Mixed hyperlipidemia; I11.0 Hypertensive heart disease with heart failure; E78.5 Hyperlipidemia, unspecified; Z95.5 Presence of coronary angioplasty implant and graft; Z86.73 Personal history of transient ischemic attack (TIA), and cerebral infarction without residual deficits; Z72.0 Tobacco use; Z95.818 Presence of other cardiac implants and grafts; Z79.4 Long term (current) use of insulin
CPT/HCPCS: 36415; 36416; 36430; 71045; 80048; 82805; 85025; 85610; 85730; 86850; 86900; 86901; 93005; 93010; 93798; 94002; 94003; 94640; 97139; C1713; J0171; J0690; J1100; J1580; J1642; J1644; J1815; J1885; J2001; J2060; J2150; J2250; J2270; J2370; J2440; J2704; J2720; J3010; J3370; J3475; J3480; J3490; J7050; J7620; P9035; P9045; S0017; S0020; S0028

== ENCOUNTER 2022-01-08 16:10 | Inpatient (IN) | payer MEDICARE ==
[2022-01-08 16:43] LABS: #Eosinphils 0.4 thou/uL (0.0-0.7); #Lymphocytes 1.8 thou/uL (1.20-3.40); #Neutrophils 10.1 thou/uL (1.40-6.50); %Basophils 0.3 % (0.0-1.0); %Eosinophils 2.9 % (0.0-10.0); %Lymphocytes 13.8 % (21.0-51.0); %Monocytes 7.2 % (0.0-10.0); %Neutrophils 75.8 % (42.0-75.0); Hemoglobin 10.8 g/dL (14.0-18.0); Mean Corpuscular HGB CONC 29.9 g/dL (32.0-36.0); Mean Corpuscular Hemoglobin 24.4 pg (27.0-31.0); Mean Corpuscular Volume 81.5 fL (78.0-98.0); Mean Platelet Volume 9.1 fL (7.4-10.4); Platelet Count 418 thou/uL (130-400); RBC Distribution Width 16.4 % (11.5-14.5); Red Blood Cell (RBC) Count 4.43 mill/uL (4.70-6.10); White Blood Cell (WBC) Count 13.3 thou/uL (4.8-10.8)
[2022-01-08] MEDS ORDERED: Morphine 4 MG/ML VIAL ONE ×2 (16:47→19:04)
[2022-01-08] MEDS ORDERED: Piperacillin/Tazobactam 3.375 GM VIAL ONE (16:47)
[2022-01-08 16:59] LABS: Anisocytosis SLIGHT = 6-15 cells (100X) (0-5/hpf); Hypochromia SLIGHT = 6-15 cells (100X) (0-5/hpf); MDiff Complete? YES; Platelet Morphology Comment Appears Increased; Polychromasia SLIGHT = 2-3 cells (100X) (0-2/hpf)
[2022-01-08 17:09] LABS: ALT (SGPT) 9 U/L (8-55); AST (SGOT) 15 U/L (5-34); Alkaline Phosphatase 115 U/L (40-110); Anion Gap 13 mmol/L (10-20); BUN (Urea Nitrogen) 16 mg/dL (8.4-25.7); Bilirubin, Total 0.2 mg/dL (0.2-1.2); CRP (Inflammatory) 9.94 mg/dL (= or < 0.5); Calc. Creatinine Clearance 0 mL/min (70-130); Calcium 9.2 mg/dL (7.8-10.44); Carbon Dioxide 26 mmol/L (23-31); Chloride 102 mmol/L (98-107); Globulin 4.1 g/dL (2.4-3.5); Glucose 157 mg/dL (80-115); Potassium 4.3 mmol/L (3.5-5.1); Protein, Total 7.1 g/dL (5.8-8.1); Sodium 137 mmol/L (136-145)
[2022-01-08] MEDS ORDERED: Vancomycin 1 GM/200 ML BAG ONE (17:31)
[2022-01-08 19:48] LABS: Lactic Acid 1.2 mmol/L (0.5-2.2)
[2022-01-08] MEDS ORDERED: Ondansetron ODT 4 MG TAB PO PRN (21:16)
[2022-01-08] MEDS ORDERED: HYDROcodone/Acetaminophen 7.5/325 mg Tablet PO PRN (21:16)
[2022-01-08] MEDS ORDERED: Norepinephrine 8 MG/0.9% NS 250 ML ONE (21:59)
[2022-01-08] MEDS ORDERED: Rocuronium Bromide 10 MG/ML (10ML VIAL) ONE (22:03)
[2022-01-08] MEDS ORDERED: Ketamine 50 MG/ML (10ML VIAL) ONE (22:03)
[2022-01-08 22:58] LABS: Actual Bicarbonate (HCO3a) 20.7 mEq/L (22-28); Analyzer IN Cardio ER; Base Excess (BEa) -5.2 mEq/L (-2.0 to +3.0); CO2 Tension 41.7 mmHg (35.0-45.0); Calcium, Ionized (arterial) 1.07 mmol/L (1.12-1.30); Carboxyhemoglobin (COHb) 0.7 gm% (0.0-3.0); Hemoglobin (Hb) 11.6 g/dL (14.0-18.0); O2 Tension (PaO2), arterial 78.8 mmHg (> 80.0); Potassium - ABG Lab 2.87 mmol/L (3.70-5.30); pH, Arterial 7.31 (7.35-7.45)
[2022-01-08 23:01] LABS: Puncture Site RRA
[2022-01-08 23:02] LABS: ALV-art Gradient 154.275 mmHg (0-20)
[2022-01-09 01:04] LABS: SARS-CoV-2 NAA Rapid Test Not Detected (NotDetected)
[2022-01-09] MEDS ORDERED: Dextrose 50% Abboject 50 ML SYRINGE SLOW IVP PRN (01:47)
[2022-01-09] MEDS ORDERED: Dextrose 5% in Water 1,000 ML IV PRN (01:47)
[2022-01-09] MEDS ORDERED: Propofol 1,000 MG/100 ML VIAL IV ONE (01:48)
[2022-01-09] MEDS ORDERED: DISCONTINUE PREVIOUS NARCOTIC PAIN MEDICATIONS AND BENZODIAZEPINES FS SCH (02:00)
[2022-01-09] MEDS ORDERED: Propofol BOLUS 1,000 MG/100 ML VIAL IV PRN (02:00)
[2022-01-09] MEDS ORDERED: Lorazepam 2 MG/ML VIAL SLOW IVP PRN (02:00)
[2022-01-09] MEDS ORDERED: Propofol 1,000 MG/100 ML VIAL IV PRN (02:00)
[2022-01-09] MEDS ORDERED: Fentanyl BOLUS 250 ML IVPB PRN (02:00)
[2022-01-09] MEDS ORDERED: Morphine 4 MG/ML VIAL SLOW IVP PRN (02:00)
[2022-01-09] MEDS ORDERED: fentaNYL Citrate-0.9 % NaCl/PF 100 ML IV SCH (02:00)
[2022-01-09] MEDS ORDERED: Sodium Chloride 0.9% 1,000 ML IV SCH (02:15)
[2022-01-09 04:09] LABS: #Eosinphils 0.1 thou/uL (0.0-0.7); #Lymphocytes 1.4 thou/uL (1.20-3.40); #Monocytes 1.4 thou/uL (0.11-0.59); #Neutrophils 15.2 thou/uL (1.40-6.50); %Basophils 0.2 % (0.0-1.0); %Eosinophils 0.5 % (0.0-10.0); %Lymphocytes 7.6 % (21.0-51.0); %Monocytes 7.9 % (0.0-10.0); %Neutrophils 83.9 % (42.0-75.0); Hemoglobin 9.9 g/dL (14.0-18.0); Mean Corpuscular HGB CONC 29.4 g/dL (32.0-36.0); Mean Corpuscular Volume 81.7 fL (78.0-98.0); Mean Platelet Volume 8.8 fL (7.4-10.4); Platelet Count 422 thou/uL (130-400); RBC Distribution Width 16.1 % (11.5-14.5); Red Blood Cell (RBC) Count 4.13 mill/uL (4.70-6.10); White Blood Cell (WBC) Count 18.1 thou/uL (4.8-10.8)
[2022-01-09 04:15] LABS: Anion Gap 12 mmol/L (10-20); BUN (Urea Nitrogen) 11 mg/dL (8.4-25.7); Calc. Creatinine Clearance 155 mL/min (70-130); Calcium 7.8 mg/dL (7.8-10.44); Carbon Dioxide 23 mmol/L (23-31); Chloride 108 mmol/L (98-107); Glucose 132 mg/dL (80-115); Potassium 3.5 mmol/L (3.5-5.1); Sodium 139 mmol/L (136-145)
[2022-01-09] MEDS: Cefepime 1 GM in Sodium Chloride 0.9% 100 ML IVPB SCH ×2 (07:31→16:06)
[2022-01-09] MEDS: VANCOMYCIN 2 GRAM/500 ML BAG 2 GM in Premix Bag 1 BAG IVPB SCH ×2 (07:31→16:08)
[2022-01-09 07:42] LABS: Actual Bicarbonate (HCO3a) 22.3 mEq/L (22-28); Base Excess (BEa) -1.2 mEq/L (-2.0 to +3.0); CO2 Tension 32.9 mmHg (35.0-45.0); Carboxyhemoglobin (COHb) 0.4 gm% (0.0-3.0); Hemoglobin (Hb) 10.8 g/dL (14.0-18.0); O2 Tension (PaO2), arterial 174.2 mmHg (> 80.0); Potassium - ABG Lab 3.35 mmol/L (3.70-5.30); Puncture Site RRA; pH, Arterial 7.45 (7.35-7.45)
[2022-01-09 07:43] LABS: ALV-art Gradient 69.875 mmHg (0-20)
[2022-01-09] MEDS: Aspirin 81 mg Enteric Coated Tablet PO SCH (08:57)
[2022-01-09] MEDS: Heparin 5,000 UNITS/ML VIAL SC SCH ×3 (08:58→20:33)
[2022-01-09] MEDS: Clopidogrel Bisulfate 75 MG TAB PO SCH (08:58)
[2022-01-09] MEDS ORDERED: CEFEPIME HCL IN DEXTROSE 5 % 1 GM/50 ML BAG IVPB SCH (09:00)
[2022-01-09] MEDS ORDERED: Vancomycin 1.5 GRAM/300 ML BAG 1.5 GM in Premix Bag 1 BAG IVPB SCH (09:00)
[2022-01-09] MEDS: Dextrose 10% in Water 1,000 ML IV SCH ×2 (09:37→21:20)
[2022-01-09] MEDS: Norepinephrine 8 MG/0.9% NS 250 ML IVPB SCH (10:50)
[2022-01-09] MEDS: Acetaminophen 325 MG TAB PO PRN (11:27)
[2022-01-09] MEDS: Artificial Tear Sol 15 ML BOT EA EYE PRN (13:39)
[2022-01-09] MEDS ORDERED: traMADol HCl 50 MG TAB PO PRN (13:45)
[2022-01-09] MEDS: Morphine 2 MG/ML VIAL SLOW IVP PRN ×2 (16:06→20:33)
[2022-01-09] MEDS: Atorvastatin Calcium 40 MG TAB PO SCH (20:33)
[2022-01-09] MEDS: Famotidine 20 MG TAB PO SCH (20:33)
[2022-01-10] MEDS: Morphine 2 MG/ML VIAL SLOW IVP PRN ×5 (02:54→19:57)
[2022-01-10] MEDS: Cefepime 1 GM in Sodium Chloride 0.9% 100 ML IVPB SCH ×2 (02:58→15:42)
[2022-01-10 03:43] LABS: #Eosinphils 0.7 thou/uL (0.0-0.7); #Monocytes 1.2 thou/uL (0.11-0.59); #Neutrophils 11.8 thou/uL (1.40-6.50); %Basophils 0.2 % (0.0-1.0); %Eosinophils 4.2 % (0.0-10.0); %Lymphocytes 12.5 % (21.0-51.0); %Monocytes 7.9 % (0.0-10.0); %Neutrophils 75.2 % (42.0-75.0); Mean Corpuscular HGB CONC 29.1 g/dL (32.0-36.0); Mean Corpuscular Volume 82.5 fL (78.0-98.0); Mean Platelet Volume 9.1 fL (7.4-10.4); Platelet Count 382 thou/uL (130-400); RBC Distribution Width 16.2 % (11.5-14.5); Red Blood Cell (RBC) Count 4.18 mill/uL (4.70-6.10); White Blood Cell (WBC) Count 15.7 thou/uL (4.8-10.8)
[2022-01-10 03:45] LABS: Hemoglobin A1c 6.2 % (4.0-6.0)
[2022-01-10 03:59] LABS: Vancomycin, Trough 19.6 ug/mL
[2022-01-10 04:02] LABS: ALT (SGPT) Less than 7 U/L (8-55); AST (SGOT) 13 U/L (5-34); Albumin 2.5 g/dL (3.4-4.8); Alkaline Phosphatase 96 U/L (40-110); Anion Gap 11 mmol/L (10-20); BUN (Urea Nitrogen) 6 mg/dL (8.4-25.7); Bilirubin, Total 0.4 mg/dL (0.2-1.2); Calc. Creatinine Clearance 135 mL/min (70-130); Calcium 8.2 mg/dL (7.8-10.44); Carbon Dioxide 23 mmol/L (23-31); Chloride 102 mmol/L (98-107); Globulin 4.2 g/dL (2.4-3.5); Glucose 240 mg/dL (80-115); Magnesium 1.5 mg/dL (1.6-2.6); Potassium 3.6 mmol/L (3.5-5.1); Protein, Total 6.7 g/dL (5.8-8.1); Sodium 132 mmol/L (136-145)
[2022-01-10] MEDS: Norepinephrine 8 MG/0.9% NS 250 ML IVPB SCH ×2 (04:33→15:42)
[2022-01-10] MEDS: Vancomycin 1 GM in Premix Bag 1 BAG IVPB SCH ×2 (04:33→17:16)
[2022-01-10] MEDS: VANCOMYCIN 2 GRAM/500 ML BAG 2 GM in Premix Bag 1 BAG IVPB SCH (04:59)
[2022-01-10] MEDS: Dextrose 10% in Water 1,000 ML IV SCH (06:33)
[2022-01-10] MEDS: Famotidine 20 MG TAB PO SCH ×2 (09:34→21:33)
[2022-01-10] MEDS: Clopidogrel Bisulfate 75 MG TAB PO SCH (09:34)
[2022-01-10] MEDS: Aspirin 81 mg Enteric Coated Tablet PO SCH (09:34)
[2022-01-10] MEDS: Heparin 5,000 UNITS/ML VIAL SC SCH ×3 (09:34→21:33)
[2022-01-10] MEDS ORDERED: Electrolyte Replacement Protocol 1 EACH FS PRN (09:45)
[2022-01-10] MEDS ORDERED: Dextrose 5% in Water 1,000 ML IV SCH (10:00)
[2022-01-10] MEDS ORDERED: Magnesium 2 GM/50 ML(in water) 2 GM in Premix Bag 1 BAG IVPB SCH (10:00)
[2022-01-10] MEDS: Dextrose 5% in Water 1,000 ML IV SCH (11:22)
[2022-01-10] MEDS: Artificial Tear Sol 15 ML BOT EA EYE PRN (11:29)
[2022-01-10] MEDS: HumaLOG 300 UNITS/3 ML VIAL SC PRN (16:12)
[2022-01-10] MEDS: traMADol HCl 50 MG TAB PO PRN (18:48)
[2022-01-10] MEDS: Atorvastatin Calcium 40 MG TAB PO SCH (21:34)
[2022-01-11] MEDS: Morphine 2 MG/ML VIAL SLOW IVP PRN ×5 (00:39→19:42)
[2022-01-11] MEDS: Cefepime 1 GM in Sodium Chloride 0.9% 100 ML IVPB SCH ×2 (04:01→15:59)
[2022-01-11 04:19] LABS: #Eosinphils 0.4 thou/uL (0.0-0.7); #Lymphocytes 1.7 thou/uL (1.20-3.40); #Monocytes 1.2 thou/uL (0.11-0.59); #Neutrophils 12.8 thou/uL (1.40-6.50); %Basophils 0.2 % (0.0-1.0); %Eosinophils 2.4 % (0.0-10.0); %Lymphocytes 10.7 % (21.0-51.0); %Monocytes 7.3 % (0.0-10.0); %Neutrophils 79.4 % (42.0-75.0); Hemoglobin 10.1 g/dL (14.0-18.0); Mean Corpuscular HGB CONC 29.5 g/dL (32.0-36.0); Mean Corpuscular Volume 81.4 fL (78.0-98.0); Platelet Count 359 thou/uL (130-400); RBC Distribution Width 16.2 % (11.5-14.5); Red Blood Cell (RBC) Count 4.23 mill/uL (4.70-6.10); White Blood Cell (WBC) Count 16.2 thou/uL (4.8-10.8)
[2022-01-11 04:22] LABS: Hemoglobin A1c 6.2 % (4.0-6.0)
[2022-01-11 04:35] LABS: ALT (SGPT) Less than 7 U/L (8-55); AST (SGOT) 11 U/L (5-34); Albumin 2.4 g/dL (3.4-4.8); Alkaline Phosphatase 100 U/L (40-110); Anion Gap 10 mmol/L (10-20); BUN (Urea Nitrogen) 4 mg/dL (8.4-25.7); Bilirubin, Total 0.7 mg/dL (0.2-1.2); Calc. Creatinine Clearance 150 mL/min (70-130); Calcium 8.5 mg/dL (7.8-10.44); Carbon Dioxide 28 mmol/L (23-31); Chloride 99 mmol/L (98-107); Globulin 4.2 g/dL (2.4-3.5); Glucose 202 mg/dL (80-115); Magnesium 1.9 mg/dL (1.6-2.6); Potassium 3.6 mmol/L (3.5-5.1); Protein, Total 6.6 g/dL (5.8-8.1); Sodium 133 mmol/L (136-145)
[2022-01-11] MEDS: Vancomycin 1 GM in Premix Bag 1 BAG IVPB SCH ×2 (05:08→17:40)
[2022-01-11] MEDS: HumaLOG 300 UNITS/3 ML VIAL SC PRN ×5 (05:09→20:50)
[2022-01-11] MEDS: Norepinephrine 8 MG/0.9% NS 250 ML IVPB SCH (07:02)
[2022-01-11] MEDS ORDERED: Magnesium 2 GM/50 ML(in water) 2 GM in Premix Bag 1 BAG IVPB SCH (08:00)
[2022-01-11] MEDS: Heparin 5,000 UNITS/ML VIAL SC SCH ×3 (08:33→20:50)
[2022-01-11] MEDS: Famotidine 20 MG TAB PO SCH ×2 (08:34→20:49)
[2022-01-11] MEDS: Clopidogrel Bisulfate 75 MG TAB PO SCH (08:34)
[2022-01-11] MEDS: Aspirin 81 mg Enteric Coated Tablet PO SCH (08:34)
[2022-01-11] MEDS: Doxycycline 100 MG in Sodium Chloride 0.9% 100 ML IVPB SCH ×2 (09:06→20:48)
[2022-01-11] MEDS: Dextrose 5% in Water 1,000 ML IV SCH (10:20)
[2022-01-11] MEDS ORDERED: Midodrine HCl 5 MG TAB PO SCH (11:00)
[2022-01-11] MEDS ORDERED: Lactated Ringer's 500 ML IV SCH (11:00)
[2022-01-11] MEDS: Midodrine HCl 5 MG TAB PO SCH ×2 (14:25→20:50)
[2022-01-11 16:14] LABS: Vancomycin, Trough 16.5 ug/mL
[2022-01-11] MEDS ORDERED: methylPREDNISolone Sod Succ 40 MG VIAL IVP SCH (16:45)
[2022-01-11] MEDS: Atorvastatin Calcium 40 MG TAB PO SCH (20:49)
[2022-01-12] MEDS: Morphine 2 MG/ML VIAL SLOW IVP PRN ×6 (00:07→21:25)
[2022-01-12] MEDS: Norepinephrine 8 MG/0.9% NS 250 ML IVPB SCH (00:14)
[2022-01-12] MEDS: HumaLOG 300 UNITS/3 ML VIAL SC PRN ×5 (00:46→20:32)
[2022-01-12] MEDS: Cefepime 1 GM in Sodium Chloride 0.9% 100 ML IVPB SCH (03:52)
[2022-01-12] MEDS: Vancomycin 1 GM in Premix Bag 1 BAG IVPB SCH ×2 (04:11→16:58)
[2022-01-12 04:22] LABS: #Lymphocytes 0.8 thou/uL (1.20-3.40); #Monocytes 1.1 thou/uL (0.11-0.59); #Neutrophils 16.9 thou/uL (1.40-6.50); %Basophils 0.1 % (0.0-1.0); %Eosinophils 0.1 % (0.0-10.0); %Lymphocytes 4.5 % (21.0-51.0); %Monocytes 5.9 % (0.0-10.0); %Neutrophils 89.5 % (42.0-75.0); Hemoglobin 9.7 g/dL (14.0-18.0); Mean Corpuscular HGB CONC 29.9 g/dL (32.0-36.0); Mean Corpuscular Hemoglobin 24.2 pg (27.0-31.0); Mean Corpuscular Volume 81.1 fL (78.0-98.0); Mean Platelet Volume 9.2 fL (7.4-10.4); Platelet Count 350 thou/uL (130-400); Red Blood Cell (RBC) Count 3.99 mill/uL (4.70-6.10); White Blood Cell (WBC) Count 18.9 thou/uL (4.8-10.8)
[2022-01-12 04:38] LABS: Anion Gap 9 mmol/L (10-20); BUN (Urea Nitrogen) 6 mg/dL (8.4-25.7); Calc. Creatinine Clearance 142 mL/min (70-130); Calcium 8.6 mg/dL (7.8-10.44); Carbon Dioxide 31 mmol/L (23-31); Chloride 97 mmol/L (98-107); Glucose 233 mg/dL (80-115); Potassium 3.9 mmol/L (3.5-5.1); Sodium 133 mmol/L (136-145)
[2022-01-12] MEDS: traMADol HCl 50 MG TAB PO PRN (06:35)
[2022-01-12] MEDS: Aspirin 81 mg Enteric Coated Tablet PO SCH ×2 (09:00→14:18)
[2022-01-12] MEDS ORDERED: Dexamethasone 10 MG in Sodium Chloride 0.9% 50 ML IVPB SCH (09:00)
[2022-01-12] MEDS: Famotidine 20 MG TAB PO SCH ×2 (09:10→20:31)
[2022-01-12] MEDS: Clopidogrel Bisulfate 75 MG TAB PO SCH (09:10)
[2022-01-12] MEDS: Midodrine HCl 5 MG TAB PO SCH ×3 (09:10→20:31)
[2022-01-12] MEDS: Doxycycline 100 MG in Sodium Chloride 0.9% 100 ML IVPB SCH ×2 (09:10→20:30)
[2022-01-12] MEDS: Fluticasone Propionate Nasal Spray 16 gm Bottle NASAL SCH (09:10)
[2022-01-12] MEDS: Loratadine 10 MG TAB PO SCH (09:10)
[2022-01-12 09:12] LABS: Actual Bicarbonate (HCO3a) 28.2 mEq/L (22-28); Calcium, Ionized (arterial) 1.14 mmol/L (1.12-1.30); Carboxyhemoglobin (COHb) 0.9 gm% (0.0-3.0); Hemoglobin (Hb) 10.3 g/dL (14.0-18.0); O2 Tension (PaO2), arterial 61.3 mmHg (> 80.0); Potassium - ABG Lab 3.51 mmol/L (3.70-5.30); Puncture Site RBA; pH, Arterial 7.46 (7.35-7.45)
[2022-01-12] MEDS: Heparin 5,000 UNITS/ML VIAL SC SCH ×3 (09:14→20:31)
[2022-01-12] MEDS ORDERED: Dexamethasone 10 MG/ML VIAL SLOW IVP SCH (09:15)
[2022-01-12] MEDS: Furosemide 40 MG/4 ML VIAL SLOW IVP SCH (09:18)
[2022-01-12] MEDS: Dextrose 5% in Water 1,000 ML IV SCH (11:30)
[2022-01-12] MEDS: Cefepime 2 GM in Sodium Chloride 0.9% 100 ML IVPB SCH (16:58)
[2022-01-12] MEDS: Atorvastatin Calcium 40 MG TAB PO SCH (20:31)
[2022-01-13] MEDS: HumaLOG 300 UNITS/3 ML VIAL SC PRN ×5 (01:06→23:07)
[2022-01-13] MEDS: Morphine 2 MG/ML VIAL SLOW IVP PRN ×5 (01:24→20:37)
[2022-01-13] MEDS: Cefepime 2 GM in Sodium Chloride 0.9% 100 ML IVPB SCH ×2 (03:42→16:03)
[2022-01-13] MEDS: Vancomycin 1 GM in Premix Bag 1 BAG IVPB SCH ×2 (04:48→16:04)
[2022-01-13 05:06] LABS: #Monocytes 1.4 thou/uL (0.11-0.59); #Neutrophils 17.1 thou/uL (1.40-6.50); %Basophils 0.2 % (0.0-1.0); %Eosinophils 0.1 % (0.0-10.0); %Lymphocytes 4.9 % (21.0-51.0); %Monocytes 7.2 % (0.0-10.0); %Neutrophils 87.7 % (42.0-75.0); Hemoglobin 8.9 g/dL (14.0-18.0); Mean Corpuscular HGB CONC 29.6 g/dL (32.0-36.0); Mean Corpuscular Hemoglobin 23.8 pg (27.0-31.0); Mean Corpuscular Volume 80.5 fL (78.0-98.0); Platelet Count 379 thou/uL (130-400); RBC Distribution Width 16.1 % (11.5-14.5); Red Blood Cell (RBC) Count 3.73 mill/uL (4.70-6.10); White Blood Cell (WBC) Count 19.4 thou/uL (4.8-10.8)
[2022-01-13 05:24] LABS: Anion Gap 9 mmol/L (10-20); BUN (Urea Nitrogen) 14 mg/dL (8.4-25.7); Calc. Creatinine Clearance 148 mL/min (70-130); Calcium 8.5 mg/dL (7.8-10.44); Carbon Dioxide 32 mmol/L (23-31); Chloride 97 mmol/L (98-107); Glucose 214 mg/dL (80-115); Potassium 3.5 mmol/L (3.5-5.1); Sodium 134 mmol/L (136-145)
[2022-01-13] MEDS ORDERED: Potassium Chloride 20 MEQ TAB PO SCH (08:00)
[2022-01-13] MEDS: Furosemide 40 MG/4 ML VIAL SLOW IVP SCH (08:15)
[2022-01-13] MEDS: Doxycycline 100 MG in Sodium Chloride 0.9% 100 ML IVPB SCH ×2 (08:15→20:44)
[2022-01-13] MEDS: Famotidine 20 MG TAB PO SCH ×2 (08:16→20:36)
[2022-01-13] MEDS: Acetaminophen 325 MG TAB PO PRN (08:16)
[2022-01-13] MEDS: Loratadine 10 MG TAB PO SCH (08:16)
[2022-01-13] MEDS: Clopidogrel Bisulfate 75 MG TAB PO SCH (08:16)
[2022-01-13] MEDS: Heparin 5,000 UNITS/ML VIAL SC SCH ×3 (08:17→20:36)
[2022-01-13] MEDS: traMADol HCl 50 MG TAB PO PRN (08:17)
[2022-01-13] MEDS: Aspirin 81 mg Enteric Coated Tablet PO SCH (08:17)
[2022-01-13] MEDS: Dexamethasone 10 MG/ML VIAL SLOW IVP SCH (08:17)
[2022-01-13] MEDS: Fluticasone Propionate Nasal Spray 16 gm Bottle NASAL SCH (10:00)
[2022-01-13] MEDS: ALPRAZolam 0.25 MG TAB PO PRN ×2 (10:33→20:36)
[2022-01-13] MEDS: Midodrine HCl 5 MG TAB PO SCH ×3 (10:33→20:43)
[2022-01-13 16:35] LABS: Vancomycin, Trough 20.8 ug/mL
[2022-01-13] MEDS: Senokot S 8.6-50 MG TAB PO SCH (20:36)
[2022-01-13] MEDS: Atorvastatin Calcium 40 MG TAB PO SCH (20:36)
[2022-01-14] MEDS: Morphine 2 MG/ML VIAL SLOW IVP PRN ×4 (02:07→21:35)
[2022-01-14] MEDS: Cefepime 2 GM in Sodium Chloride 0.9% 100 ML IVPB SCH ×2 (04:12→15:27)
[2022-01-14 04:38] LABS: #Lymphocytes 0.7 thou/uL (1.20-3.40); #Neutrophils 12.3 thou/uL (1.40-6.50); %Basophils 0.1 % (0.0-1.0); %Eosinophils 0.1 % (0.0-10.0); %Lymphocytes 5.3 % (21.0-51.0); %Monocytes 7.1 % (0.0-10.0); %Neutrophils 87.5 % (42.0-75.0); Hemoglobin 9.4 g/dL (14.0-18.0); Mean Corpuscular HGB CONC 30.5 g/dL (32.0-36.0); Mean Corpuscular Hemoglobin 24.7 pg (27.0-31.0); Mean Corpuscular Volume 81.2 fL (78.0-98.0); Mean Platelet Volume 9.4 fL (7.4-10.4); Platelet Count 344 thou/uL (130-400); RBC Distribution Width 16.3 % (11.5-14.5); Red Blood Cell (RBC) Count 3.81 mill/uL (4.70-6.10); White Blood Cell (WBC) Count 14.1 thou/uL (4.8-10.8)
[2022-01-14 05:00] LABS: Anion Gap 11 mmol/L (10-20); BUN (Urea Nitrogen) 21 mg/dL (8.4-25.7); Calc. Creatinine Clearance 146 mL/min (70-130); Calcium 8.3 mg/dL (7.8-10.44); Carbon Dioxide 33 mmol/L (23-31); Chloride 97 mmol/L (98-107); Glucose 214 mg/dL (80-115); Potassium 3.9 mmol/L (3.5-5.1); Sodium 137 mmol/L (136-145)
[2022-01-14] MEDS: Vancomycin HCl 750 MG in Sodium Chloride 0.9% 250 ML 250 ML IVPB SCH ×2 (05:39→17:02)
[2022-01-14] MEDS: HumaLOG 300 UNITS/3 ML VIAL SC PRN ×3 (06:16→15:29)
[2022-01-14] MEDS: Doxycycline 100 MG in Sodium Chloride 0.9% 100 ML IVPB SCH ×2 (09:03→21:34)
[2022-01-14] MEDS: Loratadine 10 MG TAB PO SCH (09:05)
[2022-01-14] MEDS: Aspirin 81 mg Enteric Coated Tablet PO SCH (09:05)
[2022-01-14] MEDS: Senokot S 8.6-50 MG TAB PO SCH ×2 (09:05→21:35)
[2022-01-14] MEDS: Dexamethasone 10 MG/ML VIAL SLOW IVP SCH (09:05)
[2022-01-14] MEDS: Heparin 5,000 UNITS/ML VIAL SC SCH ×3 (09:05→21:36)
[2022-01-14] MEDS: Famotidine 20 MG TAB PO SCH ×2 (09:05→21:35)
[2022-01-14] MEDS: Clopidogrel Bisulfate 75 MG TAB PO SCH (09:05)
[2022-01-14] MEDS: Fluticasone Propionate Nasal Spray 16 gm Bottle NASAL SCH (09:05)
[2022-01-14] MEDS: Polyethylene Glycol 3350 17 GM Packet PO SCH (09:06)
[2022-01-14] MEDS: Midodrine HCl 5 MG TAB PO SCH ×3 (10:29→21:35)
[2022-01-14] MEDS: ALPRAZolam 0.25 MG TAB PO PRN ×2 (19:54→23:40)
[2022-01-14] MEDS: Atorvastatin Calcium 40 MG TAB PO SCH (21:35)
[2022-01-15] MEDS: Morphine 2 MG/ML VIAL SLOW IVP PRN ×5 (02:37→21:03)
[2022-01-15 03:23] LABS: Base Excess (BEa) 7.2 mEq/L (-2.0 to +3.0); CO2 Tension 52.9 mmHg (35.0-45.0); Calcium, Ionized (arterial) 1.16 mmol/L (1.12-1.30); Carboxyhemoglobin (COHb) 0.6 gm% (0.0-3.0); O2 Tension (PaO2), arterial 70.1 mmHg (> 80.0); Potassium - ABG Lab 3.82 mmol/L (3.70-5.30); pH, Arterial 7.41 (7.35-7.45)
[2022-01-15] MEDS: traMADol HCl 50 MG TAB PO PRN (03:25)
[2022-01-15] MEDS: Cefepime 2 GM in Sodium Chloride 0.9% 100 ML IVPB SCH ×2 (03:25→16:44)
[2022-01-15 03:30] LABS: Puncture Site A
[2022-01-15 03:31] LABS: ALV-art Gradient 220.275 mmHg (0-20)
[2022-01-15] MEDS ORDERED: Furosemide 20 MG/2 ML VIAL SLOW IVP SCH (04:00)
[2022-01-15] MEDS: Vancomycin HCl 750 MG in Sodium Chloride 0.9% 250 ML 250 ML IVPB SCH ×2 (05:40→17:44)
[2022-01-15] MEDS: HumaLOG 300 UNITS/3 ML VIAL SC PRN ×3 (06:09→23:38)
[2022-01-15] MEDS: Aspirin 81 mg Enteric Coated Tablet PO SCH (09:11)
[2022-01-15] MEDS: Clopidogrel Bisulfate 75 MG TAB PO SCH (09:11)
[2022-01-15] MEDS: Fluticasone Propionate Nasal Spray 16 gm Bottle NASAL SCH (09:11)
[2022-01-15] MEDS: Loratadine 10 MG TAB PO SCH (09:12)
[2022-01-15] MEDS: Senokot S 8.6-50 MG TAB PO SCH ×2 (09:12→20:53)
[2022-01-15] MEDS: Midodrine HCl 5 MG TAB PO SCH ×3 (09:12→20:52)
[2022-01-15] MEDS: Polyethylene Glycol 3350 17 GM Packet PO SCH (09:12)
[2022-01-15] MEDS: Heparin 5,000 UNITS/ML VIAL SC SCH ×3 (09:13→20:52)
[2022-01-15] MEDS: Dexamethasone 10 MG/ML VIAL SLOW IVP SCH (09:14)
[2022-01-15] MEDS: Doxycycline 100 MG in Sodium Chloride 0.9% 100 ML IVPB SCH (09:16)
[2022-01-15] MEDS: Famotidine 20 MG TAB PO SCH ×2 (09:24→20:52)
[2022-01-15] MEDS: ALPRAZolam 0.25 MG TAB PO PRN (10:48)
[2022-01-15 10:49] LABS: ALT (SGPT) 8 U/L (8-55); AST (SGOT) 18 U/L (5-34); Albumin 2.5 g/dL (3.4-4.8); Alkaline Phosphatase 118 U/L (40-110); Anion Gap 13 mmol/L (10-20); BUN (Urea Nitrogen) 22 mg/dL (8.4-25.7); Bilirubin, Total 0.4 mg/dL (0.2-1.2); Calc. Creatinine Clearance 150 mL/min (70-130); Calcium 8.4 mg/dL (7.8-10.44); Carbon Dioxide 27 mmol/L (23-31); Chloride 102 mmol/L (98-107); Globulin 4.5 g/dL (2.4-3.5); Glucose 139 mg/dL (80-115); Potassium 4.3 mmol/L (3.5-5.1); Sodium 138 mmol/L (136-145)
[2022-01-15 12:05] LABS: #Eosinphils 0.1 thou/uL (0.0-0.7); #Lymphocytes 0.8 thou/uL (1.20-3.40); #Monocytes 0.7 thou/uL (0.11-0.59); #Neutrophils 10.9 thou/uL (1.40-6.50); %Basophils 0.1 % (0.0-1.0); %Eosinophils 0.7 % (0.0-10.0); %Lymphocytes 6.6 % (21.0-51.0); %Monocytes 5.7 % (0.0-10.0); %Neutrophils 86.9 % (42.0-75.0); Hemoglobin 9.7 g/dL (14.0-18.0); Mean Corpuscular HGB CONC 29.5 g/dL (32.0-36.0); Mean Corpuscular Hemoglobin 24.1 pg (27.0-31.0); Mean Corpuscular Volume 81.8 fL (78.0-98.0); Mean Platelet Volume 9.4 fL (7.4-10.4); Platelet Count 333 thou/uL (130-400); RBC Distribution Width 16.3 % (11.5-14.5); Red Blood Cell (RBC) Count 4.01 mill/uL (4.70-6.10); White Blood Cell (WBC) Count 12.5 thou/uL (4.8-10.8)
[2022-01-15 12:20] LABS: Hypochromia SLIGHT = 6-15 cells (100X) (0-5/hpf); MDiff Complete? YES; Platelet Morphology Comment Appears Adequate; Polychromasia SLIGHT = 2-3 cells (100X) (0-2/hpf)
[2022-01-15 16:40] LABS: Vancomycin, Trough 13.9 ug/mL
[2022-01-15] MEDS: Doxycycline 100 MG CAP PO SCH (20:52)
[2022-01-15] MEDS: Atorvastatin Calcium 40 MG TAB PO SCH (20:52)
[2022-01-15] MEDS: methylPREDNISolone Sod Succ 40 MG VIAL IVP SCH (23:39)
[2022-01-16] MEDS: Morphine 2 MG/ML VIAL SLOW IVP PRN ×6 (01:10→23:18)
[2022-01-16] MEDS: Cefepime 2 GM in Sodium Chloride 0.9% 100 ML IVPB SCH ×2 (03:57→15:45)
[2022-01-16 04:21] LABS: #Lymphocytes 0.5 thou/uL (1.20-3.40); #Monocytes 0.7 thou/uL (0.11-0.59); #Neutrophils 9.6 thou/uL (1.40-6.50); %Basophils 0.2 % (0.0-1.0); %Eosinophils 0.1 % (0.0-10.0); %Lymphocytes 4.7 % (21.0-51.0); %Monocytes 6.3 % (0.0-10.0); %Neutrophils 88.8 % (42.0-75.0); Hemoglobin 9.7 g/dL (14.0-18.0); Mean Corpuscular HGB CONC 29.8 g/dL (32.0-36.0); Mean Corpuscular Hemoglobin 23.7 pg (27.0-31.0); Mean Corpuscular Volume 79.5 fL (78.0-98.0); Mean Platelet Volume 9.3 fL (7.4-10.4); Platelet Count 363 thou/uL (130-400); RBC Distribution Width 16.5 % (11.5-14.5); White Blood Cell (WBC) Count 10.8 thou/uL (4.8-10.8)
[2022-01-16] MEDS: Vancomycin HCl 750 MG in Sodium Chloride 0.9% 250 ML 250 ML IVPB SCH ×2 (04:39→17:58)
[2022-01-16 04:41] LABS: ALT (SGPT) 8 U/L (8-55); AST (SGOT) 12 U/L (5-34); Albumin 2.6 g/dL (3.4-4.8); Alkaline Phosphatase 131 U/L (40-110); Anion Gap 10 mmol/L (10-20); BUN (Urea Nitrogen) 26 mg/dL (8.4-25.7); Bilirubin, Total 0.4 mg/dL (0.2-1.2); Calc. Creatinine Clearance 126 mL/min (70-130); Calcium 8.8 mg/dL (7.8-10.44); Carbon Dioxide 32 mmol/L (23-31); Chloride 99 mmol/L (98-107); Globulin 4.2 g/dL (2.4-3.5); Glucose 272 mg/dL (80-115); Potassium 4.1 mmol/L (3.5-5.1); Protein, Total 6.8 g/dL (5.8-8.1); Sodium 137 mmol/L (136-145)
[2022-01-16] MEDS: methylPREDNISolone Sod Succ 40 MG VIAL IVP SCH ×4 (04:54→23:08)
[2022-01-16] MEDS: HumaLOG 300 UNITS/3 ML VIAL SC PRN ×4 (06:17→21:13)
[2022-01-16] MEDS: Midodrine HCl 5 MG TAB PO SCH ×3 (09:49→21:04)
[2022-01-16] MEDS: Famotidine 20 MG TAB PO SCH ×2 (09:49→21:04)
[2022-01-16] MEDS: Loratadine 10 MG TAB PO SCH (09:49)
[2022-01-16] MEDS: Aspirin 81 mg Enteric Coated Tablet PO SCH (09:49)
[2022-01-16] MEDS: Clopidogrel Bisulfate 75 MG TAB PO SCH (09:50)
[2022-01-16] MEDS: Heparin 5,000 UNITS/ML VIAL SC SCH ×3 (09:50→21:04)
[2022-01-16] MEDS: Doxycycline 100 MG CAP PO SCH ×2 (09:50→21:04)
[2022-01-16] MEDS: Polyethylene Glycol 3350 17 GM Packet PO SCH (09:51)
[2022-01-16] MEDS: Fluticasone Propionate Nasal Spray 16 gm Bottle NASAL SCH (09:51)
[2022-01-16] MEDS: Senokot S 8.6-50 MG TAB PO SCH ×2 (09:52→21:04)
[2022-01-16] MEDS: Dexamethasone 10 MG/ML VIAL SLOW IVP SCH (09:57)
[2022-01-16 10:11] VITALS: BMI 25.7
[2022-01-16] MEDS ORDERED: Furosemide 100 MG/10 ML VIAL SLOW IVP SCH (11:16)
[2022-01-16] MEDS: Albumin 25% 25 GM/100 ML BOT IVPB SCH ×3 (12:06→23:07)
[2022-01-16] MEDS: Atorvastatin Calcium 40 MG TAB PO SCH (21:04)
[2022-01-16] MEDS: ALPRAZolam 0.25 MG TAB PO PRN (23:08)
[2022-01-17] MEDS: Morphine 2 MG/ML VIAL SLOW IVP PRN (03:45)
[2022-01-17] MEDS: Cefepime 2 GM in Sodium Chloride 0.9% 100 ML IVPB SCH (03:46)
[2022-01-17 04:14] VITALS: BP 100/62; TEMP 97.5
[2022-01-17 04:30] LABS: #Lymphocytes 0.7 thou/uL (1.20-3.40); #Monocytes 0.8 thou/uL (0.11-0.59); #Neutrophils 12.7 thou/uL (1.40-6.50); %Eosinophils 0.1 % (0.0-10.0); %Lymphocytes 4.8 % (21.0-51.0); %Monocytes 5.9 % (0.0-10.0); %Neutrophils 89.3 % (42.0-75.0); Hemoglobin 9.2 g/dL (14.0-18.0); Mean Corpuscular Hemoglobin 24.1 pg (27.0-31.0); Mean Corpuscular Volume 80.2 fL (78.0-98.0); Mean Platelet Volume 9.7 fL (7.4-10.4); Platelet Count 313 thou/uL (130-400); RBC Distribution Width 16.8 % (11.5-14.5); Red Blood Cell (RBC) Count 3.81 mill/uL (4.70-6.10); White Blood Cell (WBC) Count 14.2 thou/uL (4.8-10.8)
[2022-01-17] MEDS: Vancomycin HCl 750 MG in Sodium Chloride 0.9% 250 ML 250 ML IVPB SCH (04:30)
[2022-01-17 04:52] LABS: ALT (SGPT) 8 U/L (8-55); AST (SGOT) 13 U/L (5-34); Albumin 3.5 g/dL (3.4-4.8); Alkaline Phosphatase 137 U/L (40-110); Anion Gap 11 mmol/L (10-20); BUN (Urea Nitrogen) 25 mg/dL (8.4-25.7); Bilirubin, Total 0.7 mg/dL (0.2-1.2); CRP (Inflammatory) 2.85 mg/dL (= or < 0.5); Calc. Creatinine Clearance 141 mL/min (70-130); Calcium 8.9 mg/dL (7.8-10.44); Carbon Dioxide 34 mmol/L (23-31); Chloride 98 mmol/L (98-107); Globulin 3.7 g/dL (2.4-3.5); Glucose 233 mg/dL (80-115); Potassium 4.1 mmol/L (3.5-5.1); Protein, Total 7.2 g/dL (5.8-8.1); Sodium 139 mmol/L (136-145)
[2022-01-17] MEDS: methylPREDNISolone Sod Succ 40 MG VIAL IVP SCH (05:41)
[2022-01-17] MEDS: Albumin 25% 25 GM/100 ML BOT IVPB SCH (05:41)
[2022-01-17] MEDS: HumaLOG 300 UNITS/3 ML VIAL SC PRN (05:42)
[2022-01-17] MEDS ORDERED: Sodium Bicarb 50 MEQ/50 ML Abboject 8.4% SYRINGE ONE (07:49)
[2022-01-17] MEDS ORDERED: EPINEPHrine 1 MG/10 ML Abboject SYRINGE ONE (07:49)
== END 2022-01-17 11:45 | disposition expired | DRG 871 ==
LOC: ERS 16:10 → CCU 22:11 → 2NO 01-14 20:35
PROVIDERS: ADMIT Emergency Medicine; ATTEND Emergency Medicine
PROC: 5A1935Z Respiratory Ventilation, Less than 24 Consecutive Hours (ICD-10-PCS; principal; 2022-01-08)
PROC: 3E03329 Introduction of Other Anti-infective into Peripheral Vein, Percutaneous Approach (ICD-10-PCS; 2022-01-08)
PROC: 3E033XZ Introduction of Vasopressor into Peripheral Vein, Percutaneous Approach (ICD-10-PCS; 2022-01-08)
PROC: 0BH17EZ Insertion of Endotracheal Airway into Trachea, Via Natural or Artificial Opening (ICD-10-PCS; 2022-01-08)
PROC: 0D9670Z Drainage of Stomach with Drainage Device, Via Natural or Artificial Opening (ICD-10-PCS; 2022-01-08)
PROC: 02HV33Z Insertion of Infusion Device into Superior Vena Cava, Percutaneous Approach (ICD-10-PCS; 2022-01-08)
PROC: 5A09457 Assistance with Respiratory Ventilation, 24-96 Consecutive Hours, Continuous Positive Airway Pressure (ICD-10-PCS; 2022-01-11)
PROC: 5A12012 Performance of Cardiac Output, Single, Manual (ICD-10-PCS; 2022-01-17)
DX: A41.9 Sepsis, unspecified organism (principal); R65.21 Severe sepsis with septic shock; J80 Acute respiratory distress syndrome; G93.41 Metabolic encephalopathy; I50.43 Acute on chronic combined systolic (congestive) and diastolic (congestive) heart failure; J18.9 Pneumonia, unspecified organism; E11.52 Type 2 diabetes mellitus with diabetic peripheral angiopathy with gangrene; M86.8X7 Other osteomyelitis, ankle and foot; L03.116 Cellulitis of left lower limb; L03.115 Cellulitis of right lower limb; J93.83 Other pneumothorax; J44.0 Chronic obstructive pulmonary disease with (acute) lower respiratory infection; Z20.822 Contact with and (suspected) exposure to COVID-19; I11.0 Hypertensive heart disease with heart failure; E11.69 Type 2 diabetes mellitus with other specified complication; E78.5 Hyperlipidemia, unspecified; I25.10 Atherosclerotic heart disease of native coronary artery without angina pectoris; F17.210 Nicotine dependence, cigarettes, uncomplicated; E11.621 Type 2 diabetes mellitus with foot ulcer; L97.519 Non-pressure chronic ulcer of other part of right foot with unspecified severity; L89.621 Pressure ulcer of left heel, stage 1; L89.611 Pressure ulcer of right heel, stage 1; L89.151 Pressure ulcer of sacral region, stage 1; I46.9 Cardiac arrest, cause unspecified; Z78.1 Physical restraint status; Z95.1 Presence of aortocoronary bypass graft; Z79.899 Other long term (current) drug therapy; Z79.84 Long term (current) use of oral hypoglycemic drugs; Z79.4 Long term (current) use of insulin; Z79.02 Long term (current) use of antithrombotics/antiplatelets; Z95.5 Presence of coronary angioplasty implant and graft; Z86.73 Personal history of transient ischemic attack (TIA), and cerebral infarction without residual deficits; Z79.82 Long term (current) use of aspirin; Z82.49 Family history of ischemic heart disease and other diseases of the circulatory system; Z71.6 Tobacco abuse counseling; Z95.828 Presence of other vascular implants and grafts; I25.2 Old myocardial infarction
CPT/HCPCS: 31500; 36415; 36416; 36556; 36600; 51702; 71045; 80048; 80053; 80202; 82805; 83036; 83605; 83735; 83880; 84145; 84484; 85025; 85652; 86140; 87040; 87081; 93005; 93010; 93306; 93923; 94002; 94003; 94640; 94660; 96365; 96367; 96375; 96376; J0171; J0692; J1100; J1644; J1815; J1940; J2270; J2543; J2704; J2920; J3370; J3475; J3490; J7050; J7070; J7120; J7620; J7999; P9047; Q0162; U0002; U0003; U0005